=== PATIENT | male | born 1985 | race Caucasian/White ===

== ENCOUNTER 2020-01-04 20:38 | Emergency (ER) | payer MEDICARE, MEDICAID, SELFPAY ==
[2020-01-04 20:49] VITALS: BP 141/93; PULSE 101; RESP 18; TEMP 36.8; O2SAT 98; BMI 32.5
--- NOTE | 2020-01-04 21:00 | ED_ITS ---
HPI - Psych General Chief Complaint: Psychiatric Symptoms Stated Complaint: section 12 Time Seen by Provider: 01/04/20 21:00 Source: patient Mode of arrival: EMS Limitations: no limitations History of Present Illness HPI Narrative: This is a 34-year-old male who is brought in by EMS /police after he was found to have written on his Facebook page at that he wanted to hit governor Gus where it hurts and then the police showed up at his house and sectioned him. patient denies that he wants to kill the Governor or himself and states that he does have a learning disability that results in him not completing his sentences when written to reflect the actual thoughts in his head and states that he meant to state that he wants to hit the governor where hurts in the pockets . He states that he would be willing to offer a pelvic apology in any form that is requested of him. Related Data Allergies Allergy/AdvReac Type Severity Reaction Status Date / Time aripiprazole [From ABILIFY] Allergy Unknown suicidal Verified 01/04/20 21:00 thoughts Review of Systems Review of Systems: Pertinent positives and negatives as stated in HPI and 10 point review of systems is otherwise negative. [facility] Past Medical History Source: nursing notes reviewed Social History Social History Advance Directives: No Advance Directives Information Provided: Yes Physical Exam Vital Signs: Vital Signs: Vital Signs Temp Pulse Resp BP Pulse Ox 01/05/20 02:49 97.8 F 75 17 101/56 L 95 01/04/20 22:18 97.7 F 96 20 114/81 96 01/04/20 20:49 98.2 F 101 H 18 141/93 H 98 Body Mass Index 32.5 VITAL SIGNS: Reviewed. GENERAL: Well developed, well nourished, in no acute distress. HEAD: Normocephalic/atraumatic, EYES: PERRLA, EOMI intact without pain, no nystagmus/pallor/icterus noted EARS: Ext canals without abnormality, TMs non-bulging and non-erythematous NOSE: Nares patent bilateral OROPHARYNX: no oral lesions noted, posterior pharynx clear and non-erythematous without noted tonsillar enlargement/erythema/exudates NECK: Supple, no adenopathy LUNGS: Normal breath sounds. No adventitious sounds or accessory muscle use. SpO2<98> CARDIOVASCULAR: Regular rate and rhythm without noted murmurs, no JVD or lower extremity edema. ABDOMEN: Soft, non-tender, non-distended with bowel sounds. No rigidity. No guarding. No palpable masses or hernias noted MUSCULOSKELETAL: No tenderness, deformities, or effusions noted on gross inspection. EXTREMITIES: No cyanosis, clubbing or edema. SKIN: Inspection of the skin reveals no rashes, ulcerations, jaundice, pallor, or petechiae. NEUROLOGIC: Alert and oriented x 4. Strength and sensation to light touch were grossly intact x 4. Course Course Course Narrative: This is a 34-year-old male with history and clinical presen tation consistent with impulse/mood dysregulation but doubt serious homicidal intent. Patient is otherwise medically cleared for evaluation by the crisis team. MDM - Psych Restraints Face to Face Assessment: Face to Face Assessment: Current Situation: After assessment of the patient, a review of the pertinent medical record and a discussion with nursing staff, I feel the patient requires a restrain intervention. Reaction To: [] Medical Condition: [] Behavioral State: [] Continued Need: [] Lab Data Result diagrams: 01/04/20 21:52 01/04/20 21:52 Labs: Lab Results 01/04/20 01/04/20 01/04/20 Range/Units 21:22 21:52 21:52 WBC 12.6 H (4.8-10.8) X10*3/uL RBC 4.75 (4.60-5.80) X10*6/uL Hgb 14.1 (14.0-18.0) g/dl Hct 41.4 L (42-52) % MCV 87.2 (80-98) fL MCH 29.7 (27.0-33.0) pg MCHC 34.1 (31.0-36.0) g/dl RDW 11.7 (11.0-16.0) % Plt Count 245 (160-400) X10*3/uL MPV 8.8 L (9.4-12.4) fL Immature Gran % (Auto) 0.5 H (0.0-0.4) % Neut % (Auto) 65.1 (45-73) % Lymph % (Auto) 19.7 L (20-40) % [place] % (Auto) 8.8 (2-11) % Eos % (Auto) 5.3 H (0-4) % Baso % (Auto) 0.6 (0-2) % Lymph # (Auto) 2.5 (1.2-4.9) X10*3/uL [place] # (Auto) 1.1 (0.1-1.2) X10*3/uL Eos # (Auto) 0.7 H (0.0-0.4) X10*3/uL Baso # (Auto) 0.1 (0.0-0.2) X10*3/uL Abs Immat Gran (auto) 0.06 H (0.00-0.03) X10*3/uL Absolute Neuts (auto) 8.2 (2.0-8.3) X10*3/uL Absolute Nucleated RBC 0.000 (0.0-0.012) X10*3/uL Nucleated RBC % (auto) 0.0 (0.0-0.2) /100WBC Sodium 141 (135-145) mmol/L Potassium 3.7 (3.3-5.1) mmol/l Chloride 106 (96-108) mmol/L Carbon Dioxide 24 (22-29) mmol/L Anion Gap 15 (12-20) BUN 15 (9-16) mg/dL Creatinine 1.15 (0.5-1.4) mg/dL Estim Creat Clear Calc 103.2 Estimated GFR > 60 Random Glucose 93 (60-115) mg/dL Calcium 9.0 (8.4-10.2) mg/dL Total Bilirubin 0.4 (0.0-1.0) mg/dL AST 29 (5-37) U/L ALT 29 (0-40) U/L Alkaline Phosphatase 76 (39-117) U/L Total Protein 6.8 (6.5-8.0) g/dL Albumin 4.5 (3.5-5.0) g/dL Urine Opiates Screen Not Detected (Not Detect) Ur Barbiturates Screen Not Detected (Not Detect) Ur Phencyclidine Scrn Not Detected (Not Detect) Ur Amphetamines Screen Not Detected (Not Detect) U Benzodiazepines Scrn Not Detected (Not Detect) Urine Cocaine Screen Not Detected (Not Detect) U Marijuana (THC) Screen POSITIVE H (Not Detect) Ethyl Alcohol mg/dL 01/04/20 Range/Units 21:52 WBC (4.8-10.8) X10*3/uL RBC (4.60-5.80) X10*6/uL Hgb (14.0-18.0) g/dl Hct (42-52) % MCV (80-98) fL MCH (27.0-33.0) pg MCHC (31.0-36.0) g/dl RDW (11.0-16.0) % Plt Count (160-400) X10*3/uL MPV (9.4-12.4) fL Immature Gran % (Auto) (0.0-0.4) % Neut % (Auto) (45-73) % Lymph % (Auto) (20-40) % Barnwell % (Auto) (2-11) % Eos % (Auto) (0-4) % Baso % (Auto) (0-2) % Lymph # (Auto) (1.2-4.9) X10*3/uL [place] # (Auto) (0.1-1.2) X10*3/uL Eos # (Auto) (0.0-0.4) X10*3/uL Baso # (Auto) (0.0-0.2) X10*3/uL Abs Immat Gran (auto) (0.00-0.03) X10*3/uL Absolute Neuts (auto) (2.0-8.3) X10*3/uL Absolute Nucleated RBC (0.0-0.012) X10*3/uL Nucleated RBC % (auto) (0.0-0.2) /100WBC Sodium (135-145) mmol/L Potassium (3.3-5.1) mmol/l Chloride (96-108) mmol/L Carbon Dioxide (22-29) mmol/L Anion Gap (12-20) BUN (9-16) mg/dL Creatinine (0.5-1.4) mg/dL Estim Creat Clear Calc Estimated GFR Random Glucose (60-115) mg/dL Calcium (8.4-10.2) mg/dL Total Bilirubin (0.0-1.0) mg/dL AST (5-37) U/L ALT (0-40) U/L Alkaline Phosphatase (39-117) U/L Total Protein (6.5-8.0) g/dL Albumin (3.5-5.0) g/dL Urine Opiates Screen (Not Detect) Ur Barbiturates Screen (Not Detect) Ur Phencyclidine Scrn (Not Detect) Ur Amphetamines Screen (Not Detect) U Benzodiazepines Scrn (Not Detect) Urine Cocaine Screen (Not Detect) U Marijuana (THC) Screen (Not Detect) Ethyl Alcohol < 10 mg/dL
[2020-01-04 22:00] LABS: MANUAL DIFF FLAG NO
[2020-01-04 22:03] LABS: Basophils Absolute Auto 0.1 X10*3/uL (0.0-0.2); Basophils Percent Auto 0.6 % (0-2); Eosinophils Absolute Auto 0.7 X10*3/uL (0.0-0.4); Eosinophils Percent Auto 5.3 % (0-4); Hematocrit 41.4 % (42-52); Hemoglobin 14.1 g/dl (14.0-18.0); Imm Gran Abs Auto 0.06 X10*3/uL (0.00-0.03); Imm Gran Pct Auto 0.5 % (0.0-0.4); Lymphocytes Absolute Auto 2.5 X10*3/uL (1.2-4.9); Lymphocytes Percent Auto 19.7 % (20-40); Mean Corpuscular HGB Conc 34.1 g/dl (31.0-36.0); Mean Corpuscular Hemoglobin 29.7 pg (27.0-33.0); Mean Corpuscular Volume 87.2 fL (80-98); Mean Platelet Volume 8.8 fL (9.4-12.4); Monocytes Absolute Auto 1.1 X10*3/uL (0.1-1.2); Monocytes Percent Auto 8.8 % (2-11); Neutrophils Absolute Auto 8.2 X10*3/uL (2.0-8.3); Neutrophils Percent Auto 65.1 % (45-73); Platelet Count 245 X10*3/uL (160-400); Red Blood Count 4.75 X10*6/uL (4.60-5.80); Red Cell Distribution Width 11.7 % (11.0-16.0); White Blood Count 12.6 X10*3/uL (4.8-10.8)
[2020-01-04 22:12] LABS: Amphetamine Screen Urine Not Detected (Not Detect); Barbiturates, Urine Not Detected (Not Detect); Benzodiazepines Screen Urine Not Detected (Not Detect); Cannabinoid Screen Urine POSITIVE (Not Detect); Cocaine Screen Urine Not Detected (Not Detect); Opiate Screen Urine Not Detected (Not Detect); Phencyclidine Screen Urine Not Detected (Not Detect)
[2020-01-04 22:18] VITALS: BP 114/81; PULSE 96; RESP 20; TEMP 36.5; O2SAT 96
[2020-01-04 22:24] LABS: Ethanol < 10 mg/dL
[2020-01-04 22:26] LABS: Alanine Aminotransferase 29 U/L (0-40); Albumin Level 4.5 g/dL (3.5-5.0); Alkaline Phosphatase 76 U/L (39-117); Anion Gap 15 (12-20); Aspartate Amino Transferase 29 U/L (5-37); Bilirubin Total 0.4 mg/dL (0.0-1.0); Blood Urea Nitrogen 15 mg/dL (9-16); Carbon Dioxide 24 mmol/L (22-29); Chloride 106 mmol/L (96-108); Creatinine Clr Calc Pharmacy 103.2; Estimated Glomerular Filt Rate > 60; Glucose Random 93 mg/dL (60-115); Potassium 3.7 mmol/l (3.3-5.1); Sodium 141 mmol/L (135-145); Total Protein 6.8 g/dL (6.5-8.0)
[2020-01-04] MEDS: hydrOXYzine HCL 50 MG TABLET PO (22:40)
[2020-01-05 02:49] VITALS: BP 101/56; PULSE 75; RESP 17; TEMP 36.6; O2SAT 95
--- NOTE | 2020-01-05 03:17 | PC.NURSE ---
[facility] completed the assessment, couldn't get hold of patient's mother, disposition pending, revaluated in the morning, possible discharge home. Patient aware. Currently in bed sleeping, no distress observed/reported at this time. Will continue to monitor.
--- NOTE | 2020-01-05 07:52 | PC.NURSE ---
pleasant and polite, asked about what plan was, states that his mother is now available and that he spoke w her, awaiting [facility] for continued erval as dean was uunable to speak w his mother last night
[2020-01-05 09:02] VITALS: BP 119/52; PULSE 93; RESP 18; TEMP 36.8; O2SAT 95
[2020-01-05] MEDS: Cariprazine HCl 1.5 MG CAPSULE PO (10:14)
--- NOTE | 2020-01-05 13:41 | PC.NURSE ---
[facility] to discharge pt
== END 2020-01-05 13:49 | disposition home or self-care (01) ==
PROVIDERS: Physician Assistant; Emergency Provider Student in an Organized Health Care Education/Training Program; PCP Family Medicine
DX: F29 Unspecified psychosis not due to a substance or known physiological condition (principal)
CPT/HCPCS: 36415; 80053; 80307; 80320; 85025; 99284

== ENCOUNTER 2020-07-19 18:38 | Emergency (ER) | payer OTHER, MEDICARE, MEDICAID, SELFPAY ==
--- NOTE | ~2020-07-19 | XR_ITS ---
EXAMINATION: XR KNEE, LEFT CLINICAL INFORMATION: Knee pain. Patellar dislocation. COMPARISON: None TECHNIQUE: Four views of the left knee. FINDINGS: The patella is dislocated superior to the knee joint. No displaced fracture. There is soft tissue swelling over the anterior knee. Changes likely due to patellar tendon disruption. The femur, tibia and fibula are normal. XR/XR knee LT 4V IMPRESSION: Superior dislocation of patella. Suspect patellar tendon disruption. Follow-up with MRI would be helpful for further evaluation.
--- NOTE | 2020-07-19 19:11 | ED.LOWEXIN ---
HPI - Extremity Injury (Lower) General Chief Complaint: Extremity Injury, Lower Stated Complaint: KNEE PAIN Time Seen by Provider: 07/19/20 18:42 Source: patient Mode of arrival: EMS Limitations: no limitations History of Present Illness HPI Narrative: Patient comes emergency room complaining of left knee pain. Patient states that earlier this afternoon, patient was ?chasing people of his backyard?, patient states that while he was running he had sudden onset sharp knee pain, then fell to the ground. Patient denies hitting his head, no loss of consciousness, not on blood thinners. Patient states that he was able to walk but had too much pain on the right knee, called EMS and was brought to the emergency room. Related Data Home Medications Medication Instructions Recorded Confirmed cariprazine 1.5 mg PO DAILY 01/05/20 01/05/20 hydroxyzine HCl 50 mg PO DAILY PRN MDD 100mg 01/05/20 01/05/20 varenicline 1 mg PO BID 01/05/20 01/05/20 Previous Rx's Medication Instructions Recorded ibuprofen 600 mg PO TID PRN #14 tab 07/20/20 tramadol 50 mg PO Q8H PRN #10 tab 07/20/20 Allergies Allergy/AdvReac Type Severity Reaction Status Date / Time aripiprazole [From ABILIY] Allergy Unknown suicidal Verified 01/04/20 21:00 thoughts Review of Systems Review of Systems: Constitutional : No Weight loss, No Fever, No Chills, No Night Sweats, No Fatigue, No Malaise ENT/Mouth : No Hearing loss, No Ear Pain, No Nasal Congestion, No Sinus Pain, No Hoarseness, No sore throat, No Rhinorrhea, No Swallowing Difficulty Eyes: No Eye Pain, No Swelling, No Redness, No Foreign Body, No Discharge, No Vision Changes Cardiovascular : No Chest Pain, No SOB, No Dyspnea on Exertion, No Orthopnea, No Edema, No Palpitations Respiratory : No Cough, No Sputum, No Wheezing, No Smoke Exposure, No Dyspnea Gastrointestinal : No Nausea, No Vomiting, No Diarrhea, No Constipation, No abdominal Pain, No Hematochezia, No Melena Genitourinary : no irregular bleeding, No Dysuria, No Urinary Frequency, No Hematuria, No Urinary Incontinence, No Urgency, No Flank Pain, No Urinary Flow Changes, No Hesitancy Musculoskeletal : Complaining of left knee pain, No Myalgias, No Joint Swelling Skin : Multiple superficial skin abrasions Neuro : No Weakness, No Numbness, No Paresthesias, No Loss of Consciousness, No Dizziness, No Headache Psych : No Anxiety/Panic, No Depression, No SI/HI/AH/VH, No Social Issues, Heme/Lymph: No Bruising, No Bleeding,No Lymphadenopathy Endocrine : No Polyuria, No Polydipsia, No Temperature Intolerance [facility] Past Medical History Medical History (Updated 07/19/20 @ 22:31 by Kandice Bloom MD) Depression Social History Social History Smoking Status: Current every day smoker Use of substances other than those prescribed or required for medical reasons: Yes Substance Use Type: Marijuana Substance Use Frequency: Occasionally Advance Directives: No Advance Directives Information Provided: Yes Physical Exam Vital Signs: Vital Signs: Last Vital Signs Temp 98.4 F 07/19/20 22:00 Pulse 65 07/19/20 22:00 Resp 22 H 07/19/20 22:00 BP 171/78 H 07/19/20 22:00 Pulse Ox 95 07/19/20 22:00 Body Mass Index 38.0 Appearance: Alert. Oriented X3. No acute distress. Eyes: Pupils equal, round and reactive to light. ENT: Pharynx normal. Neck: Normal inspection. Neck supple. No lymph nodes noted. No crepitus CVS: Normal heart rate and rhythm. Pulses normal. Normal S1 and S2 Respiratory: No respiratory distress. Breath sounds normal. No Wheezing. No rales Abdomen: Soft and nontender. No rigidity. No distention. good BS x4 Skin: Skin warm and dry. Multiple abrasions to bilateral lower extremities Extremities: No lower extremity edema. Chronic deformation of the left ankle, no acute pain. Pain to palpation over the left knee Neuro: Oriented X 3. No motor deficit. No sensory deficit. Moving all extermities. No slurred speech. Course Course Course Narrative: I discussed the x-ray findings with the patient, patient has a superior patellar dislocation. Patient agrees and consents to sedation with IM ketamine. Patient received 2 milligrams/kilogram of IM ketamine. Patient tolerated well the medication. Patellar reduction was attempted, however it became evident that the patellar tendon is ruptured. I discussed the patient with DEMETRIO Johnston from orthopedics who also spoke to Dr. Nunez. Patient will be discharged home with pain medication, knee brace and crutches, he needs to follow up tomorrow with orthopedics as he will need surgery Patient is now awake, alert and oriented x3. I discussed with the patient that he has a patellar tendon rupture, the patella remains dislocated, he will need surgery. MDM - Extremity Injury (Lower) Imaging Data Knee x-ray: Radiologist's impression: The patella is dislocated superior to the knee joint. No displaced fracture. There is soft tissue swelling over the anterior knee. Changes likely due to patellar tendon disruption. The femur, tibia and fibula are normal. XR/XR knee LT 4V IMPRESSION: Superior dislocation of patella. Suspect patellar tendon disruption. Follow-up with MRI would be helpful for further evaluation. Discharge Plan Discharge Clinical Impression: Patellar tendon rupture Qualifiers: Encounter type: initial encounter Laterality: left Qualified Code(s): S86.812A - Strain of other muscle(s) and tendon(s) at lower leg level, left leg, initial encounter Closed dislocation of patella Qualifiers: Encounter type: initial encounter Laterality: left Qualified Code(s): S83.005A - Unspecified dislocation of left patella, initial encounter Patient Disposition: Home, Self-Care Instructions: Knee Immobilizer (ED), Tendon Rupture (ED) Additional Instructions: Please call the orthopedics office tomorrow, you have ruptured tendons in your knee, you will need surgery. Please follow-up with your primary care physician tomorrow. If you have any worsening or new symptoms, please return to the emergency room or call 911 Prescriptions: New tramadol 50 mg tablet 50 mg PO Q8H PRN (Reason: pain) Qty: 10 RF: 0 ibuprofen 600 mg tablet 600 mg PO TID PRN (Reason: pain) Qty: 14 RF: 0 No Action varenicline 1 mg PO BID RF: 0 cariprazine 1.5 mg PO DAILY RF: 0 hydroxyzine HCl 50 mg PO DAILY MDD 100mg PRN (Reason: Anxiety) RF: 0 Referrals: Hardik Nunez MD [Physician] - 07/20/20 9:00 am (Patellar tendon rupture with patellar dislocation)
[2020-07-19 19:17] VITALS: BP 139/90; BP 158/79; PULSE 85; PULSE 98; RESP 15; TEMP 36.4; O2SAT 96; O2SAT 97; BMI 38.0
[2020-07-19 20:00] VITALS: BP 152/76; PULSE 68; RESP 16; TEMP 36.6; O2SAT 99
[2020-07-19] MEDS: Ketamine HCl 500 MG/5 ML VIAL 453.592 MG IM (21:47)
[2020-07-19 22:00] VITALS: BP 171/78; PULSE 65; RESP 22; TEMP 36.9; O2SAT 95
--- NOTE | 2020-07-19 22:00 | PC.NURSE ---
Per MD order patient to receive half the ordered dose of ketamine. Attempt to reduce dislocated knee unsucessful. MD to consult with orthopedics. Patient tolerated the procedure well
[2020-07-19] MEDS: ondansetron HCL 4 MG/2 ML VIAL IVPUSH (22:37)
--- NOTE | 2020-07-19 22:57 | PC.NURSE ---
pt vomiting, ordered zofran.
== END 2020-07-20 00:37 | disposition home or self-care (01) ==
PROVIDERS: Emergency Provider Emergency Medicine; PCP Family Medicine
DX: S86.812A Strain of other muscle(s) and tendon(s) at lower leg level, left leg, initial encounter (principal); S83.005A Unspecified dislocation of left patella, initial encounter; M25.562 Pain in left knee; F17.200 Nicotine dependence, unspecified, uncomplicated; F12.90 Cannabis use, unspecified, uncomplicated; Y93.02 Activity, running; Y92.007 Garden or yard of unspecified non-institutional (private) residence as the place of occurrence of the external cause; Y99.9 Unspecified external cause status; Z79.899 Other long term (current) drug therapy; Z71.6 Tobacco abuse counseling
CPT/HCPCS: 73564; 96372; 96374; 99284; J2405

== ENCOUNTER 2020-12-19 12:54 | Emergency (ER) | payer OTHER, SELFPAY ==
--- NOTE | 2020-12-19 13:07 | ED_ITS ---
HPI - Psych General Chief Complaint: Psychiatric Symptoms <DEMETRIO Jay - Last Filed: 12/19/20 17:53> Stated Complaint: MANIC EPISODE <DEMETRIO Jay - Last Filed: 12/19/20 17:53> Time Seen by Provider: 12/19/20 13:06 <DEMETRIO Jay - Last Filed: 12/19/20 17:53> Source: patient and EMS <DEMETRIO Jay Last Filed: 12/19/20 17:53> Mode of arrival: EMS <DEMETRIO aJy - Last Filed: 12/19/20 17:53> Limitations: no limitations <DEMETRIO Jay - Last Filed: 12/19/20 17:53> History of Present Illness HPI Narrative: 35 yo male with history of bipolar 1 disorder, depression with multiple hospitalizations for ron and agiatated psychosis presents to the ER via EMS from home as a section 12 inpatient bed search from [facility] in the community after he was noted to be acutely manic with disorganized thoughts & paranoia. When attempted to interview the patient he reports he did not want to talk or answer any questions. 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 Again he would not answer any questions, would not say if he is suicidal or homicidal at this time. <DEMETRIO Jay - Last Filed: 12/19/20 17:53> MD complaint: anxiety and other (ron, psychosis ) <DEMETRIO Jay - Last Filed: 12/19/20 17:53> Onset (ago): unknown <DEMETRIO Jay - Last Filed: 12/19/20 17:53> Duration: constant <DEMETRIO Jay - Last Filed: 12/19/20 17:53> History of same: Yes <DEMETRIO Jay - Last Filed: 12/19/20 17:53> Relieving factors: none <DEMETRIO Jay Last Filed: 12/19/20 17:53> Exacerbating factors: none <DEMETRIO Jay - Last Filed: 12/19/20 17:53> Associated psychiatric symptoms: racing thoughts and delusions <DEMETRIO Jay - Last Filed: 12/19/20 17:53> Treatments prior to arrival: placed on mental health hold <DEMETRIO Jay - Last Filed: 12/19/20 17:53> Related Data Home Medications: Home Medications Medication Instructions Recorded Confirmed hydroxyzine pamoate 50 mg capsule 50 mg PO BID PRN 12/19/20 12/19/20 nicotine (polacrilex) 2 mg buccal 2 mg BUCCAL Q4H PRN 12/19/20 12/19/20 lozenge <DEMETRIO Jay - Last Filed: 12/19/20 17:53> Allergies/Adverse Reactions: Allergies Allergy/AdvReac Type Severity Reaction Status Date / Time aripiprazole [From ABILIFY] Allergy Unknown suicidal Verified 01/04/20 21:00 thoughts <DEMETRIO Jay - Last Filed: 12/19/20 17:53> Review of Systems Review of Systems: Refusing to answer any questions <DEMETRIO Jay - Last Filed: 12/19/20 17:53> ON LICENSE OF [facility] Past Medical History Medical History: Medical History (Updated 12/19/20 @ 16:36 by DEMETRIO Jay) Depression <DEMETRIO Jay - Last Filed: 12/19/20 17:53> Social History Social History: Social History Substance Use Type: Marijuana Advance Directives: No Advance Directives Information Provided: Yes <DEMETRIO Jay - Last Filed: 12/19/20 17:53> Physical Exam Vital Signs: Vital Signs: Last Vital Signs Temp 98.2 F 12/19/20 14:29 Pulse 94 12/19/20 14:29 Resp 18 12/19/20 14:29 BP 143/81 H 12/19/20 14:29 Pulse Ox 99 12/19/20 14:29 Body Mass Index 29.2 <DEMETRIO Jay - Last Filed: 12/19/20 17:53> Vital Signs: Last Vital Signs Temp 98.2 F 12/19/20 14:29 Pulse 94 12/19/20 14:29 Resp 18 12/19/20 14:29 BP 143/81 H 12/19/20 14:29 Pulse Ox 99 12/19/20 14:29 Body Mass Index 29.2 <Ariella Dominguez NP - Last Filed: 12/19/20 19:45> Appearance: Alert. Oriented X3. No acute distress. HEENT: normal external inspection Neck: Normal inspection. CVS: Normal heart rate and rhythm. Pulses normal. Respiratory: No respiratory distress. Breath sounds normal. Skin: Skin warm and dry. Normal skin color. Normal skin turgor. No rashes. Extremities: No lower extremity edema. Atraumatic x4. Neuro/psych: awake, alert, hyperverbal, nonsensical speech, agitated jumping from one topic to another. Not answering questions or allowing a complete examination. Unable to assess cranial nerves. <DEMETRIO Jay - Last Filed: 12/19/20 17:53> Course Course Course Narrative: 35 y/o male with history of bipolar disorder requiring hospitalizations who is presenting with an acute manic episode. He is not making sense and is hyperverbal on arrival. He is not willing to answer questions or allow physical examination at this time. Will check basic lab workup if he will allow and plan for inpatient psychiatric care. He is an inpatient bed search from the community. <DEMETRIO Jay - Last Filed: 12/19/20 17:53> Reevaluation(s) Reevaluation #1: Refuse blood work. Urine toxicology is negative. He is asking for STD testing per nursing, urine CT/NG has been ordered. Admission to hopefully today if they have a bed available. <DEMETRIO Jay - Last Filed: 12/19/20 17:53> Time: 19:45 <Ariella Dominguez NP - Last Filed: 12/19/20 19:45> Reevaluation #2: Reviewed labs, urine. Patient is medically cleared. <Ariella Dominguez NP - Last Filed: 12/19/20 19:45> MDM - Psych Lab Data Result diagrams: : 12/19/20 18:53 12/19/20 18:53 <DEMETRIO Jay - Last Filed: 12/19/20 17:53> Labs: Lab Results 1012/19/20 12/19/20 Range/Units 13:52 13:52 14:41 WBC (4.8-10.8) X10*3/uL RBC (4.60-5.80) X10*6/uL Hgb (14.0-18.0) g/dl Hct (42-52) % MCV (80-98) fL MCH (27.0-33.0) pg MCHC (31.0-36.0) g/dl RDW (11.0-16.0) % Plt Count (160-400) X10*3/uL MPV (9.4-12.4) fL Immature Gran % (Auto) (0.0-0.4) % Neut % (Auto) (45-73) % Lymph % (Auto) (20-40) % [place] % (Auto) (2-11) % Eos % (Auto) (0-4) % Baso % (Auto) (0-2) % Lymph # (Auto) (1.2-4.9) X10*3/uL [place] # (Auto) (0.1-1.2) X10*3/uL Eos # (Auto) (0.0-0.4) X10*3/uL Baso # (Auto) (0.0-0.2) X10*3/uL Abs Immat Gran (auto) (0.00-0.03) X10*3/uL Absolute Neuts (auto) (2.0-8.3) X10*3/uL Absolute Nucleated RBC (0.0-0.012) X10*3/uL Nucleated RBC % (auto) (0.0-0.2) /100WBC Sodium (135-145) mmol/L Potassium (3.3-5.1) mmol/L Chloride (96-108) mmol/L Carbon Dioxide (22-29) mmol/L Anion Gap (12-20) BUN (9-16) mg/dL Creatinine (0.5-1.4) mg/dL Estim Creat Clear Calc Estimated GFR Random Glucose (60-115) mg/dL Calcium (8.4-10.2) mg/dL Magnesium (1.6-2.6) mg/dL Total Bilirubin (0.0-1.0) mg/dL Direct Bilirubin (0.0-0.5) mg/dL AST (5-37) U/L ALT (0-40) U/L Alkaline Phosphatase (39-117) U/L Total Protein (6.5-8.0) g/dL Albumin (3.5-5.0) g/dL Urine Color YELLOW Urine Appearance CLEAR Urine pH 6.5 (5.0-8.0) Ur Specific [place] <= 1.005 (1.005-1.025) Urine Protein NEG (NEG-TRACE) MG/DL Urine Glucose (UA) NEG (NEG) MG/DL Urine Ketones NEG (NEG) MG/DL Urine Blood NEG (NEG) Urine Nitrite NEG (NEG) Ur Leukocyte Esterase NEG (NEG) Urine Opiates Screen Not Detected (Not Detect) Urine Fentanyl Screen Not Detected (Not Detect) Ur Barbiturates Screen Not Detected (Not Detect) Ur Phencyclidine Scrn Not Detected (Not Detect) Ur Amphetamines Screen Not Detected (Not Detect) U Benzodiazepines Scrn Not Detected (Not Detect) Urine Cocaine Screen Not Detected (Not Detect) U Marijuana (THC) Screen Not Detected (Not Detect) Ethyl Alcohol mg/dL COVID-19 (LINA) Negative (Negative) COVID-19 Clin Com See Note 12/19/20 12/19/20 12/19/20 Range/Units 18:53 18:53 18:53 WBC 9.5 (4.8-10.8) X10*3/uL RBC 4.52 L (4.60-5.80) X10*6/uL Hgb 13.8 L (14.0-18.0) g/dl Hct 38.7 L (42-52) % MCV 85.6 (80-98) fL MCH 30.5 (27.0-33.0) pg MCHC 35.7 (31.0-36.0) g/dl RDW 12.0 (11.0-16.0) % Plt Count 236 (160-400) X10*3/uL MPV 8.8 L (9.4-12.4) fL Immature Gran % (Auto) 0.2 (0.0-0.4) % Neut % (Auto) 64.2 (45-73) % Lymph % (Auto) 25.3 (20-40) % [place] % (Auto) 8.0 (2-11) % Eos % (Auto) 1.9 (0-4) % Baso % (Auto) 0.4 (0-2) % Lymph # (Auto) 2.4 (1.2-4.9) X10*3/uL [place] # (Auto) 0.8 (0.1-1.2) X10*3/uL Eos # (Auto) 0.2 (0.0-0.4) X10*3/uL Baso # (Auto) 0.0 (0.0-0.2) X10*3/uL Abs Immat Gran (auto) 0.02 (0.00-0.03) X10*3/uL Absolute Neuts (auto) 6.1 (2.0-8.3) X10*3/uL Absolute Nucleated RBC 0.000 (0.0-0.012) X10*3/uL Nucleated RBC % (auto) 0.0 (0.0-0.2) /100WBC Sodium 139 (135-145) mmol/L Potassium 3.6 (3.3-5.1) mmol/L Chloride 105 (96-108) mmol/L Carbon Dioxide 22 (22-29) mmol/L Anion Gap 16 (12-20) BUN 12 (9-16) mg/dL Creatinine 0.95 (0.5-1.4) mg/dL Estim Creat Clear Calc 121.5 Estimated GFR > 60 Random Glucose 150 H D (60-115) mg/dL Calcium 9.5 (8.4-10.2) mg/dL Magnesium 2.1 (1.6-2.6) mg/dL Total Bilirubin 0.6 (0.0-1.0) mg/dL Direct Bilirubin 0.3 (0.0-0.5) mg/dL AST 52 H (5-37) U/L ALT 37 (0-40) U/L Alkaline Phosphatase 72 (39-117) U/L Total Protein 7.0 (6.5-8.0) g/dL Albumin 4.9 (3.5-5.0) g/dL Urine Color Urine Appearance Urine pH (5.0-8.0) Ur Specific [place] (1.005-1.025) Urine Protein (NEG-TRACE) MG/DL Urine Glucose (UA) (NEG) MG/DL Urine Ketones (NEG) MG/DL Urine Blood (NEG) Urine Nitrite (NEG) Ur Leukocyte Esterase (NEG) Urine Opiates Screen (Not Detect) Urine Fentanyl Screen (Not Detect) Ur Barbiturates Screen (Not Detect) Ur Phencyclidine Scrn (Not Detect) Ur Amphetamines Screen (Not Detect) U Benzodiazepines Scrn (Not Detect) Urine Cocaine Screen (Not Detect) U Marijuana (THC) Screen (Not Detect) Ethyl Alcohol < 10 mg/dL COVID-19 (LINA) (Negative) COVID-19 Clin Com <DEMETRIO Jay - Last Filed: 12/19/20 17:53> Lab Results 12/19/20 12/19/20 12/19/20 Range/Units 13:52 13:52 14:41 WBC (4.8-10.8) X10*3/uL RBC (4.60-5.80) X10*6/uL Hgb (14.0-18.0) g/dl Hct (42-52) % MCV (80-98) fL MCH (27.0-33.0) pg MCHC (31.0-36.0) g/dl RDW (11.0-16.0) % Plt Count (160-400) X10*3/uL MPV (9.4-12.4) fL Immature Gran % (Auto) (0.0-0.4) % Neut % (Auto) (45-73) % Lymph % (Auto) (20-40) % [place] % (Auto) (2-11) % Eos % (Auto) (0-4) % Baso % (Auto) (0-2) % Lymph # (Auto) (1.2-4.9) X10*3/uL [place] # (Auto) (0.1-1.2) X10*3/uL Eos # (Auto) (0.0-0.4) X10*3/uL Baso # (Auto) (0.0-0.2) X10*3/uL Abs Immat Gran (auto) (0.00-0.03) X10*3/uL Absolute Neuts (auto) (2.0-8.3) X10*3/uL Absolute Nucleated RBC (0.0-0.012) X10*3/uL Nucleated RBC % (auto) (0.0-0.2) /100WBC Sodium (135-145) mmol/L Potassium (3.3-5.1) mmol/L Chloride (96-108) mmol/L Carbon Dioxide (22-29) mmol/L Anion Gap (12-20) BUN (9-16) mg/dL Creatinine (0.5-1.4) mg/dL Estim Creat Clear Calc Estimated GFR Random Glucose (60-115) mg/dL Calcium (8.4-10.2) mg/dL Magnesium (1.6-2.6) mg/dL Total Bilirubin (0.0-1.0) mg/dL Direct Bilirubin (0.0-0.5) mg/dL AST (5-37) U/L ALT (0-40) U/L Alkaline Phosphatase (39-117) U/L Total Protein (6.5-8.0) g/dL Albumin (3.5-5.0) g/dL Urine Color YELLOW Urine Appearance CLEAR Urine pH 6.5 (5.0-8.0) Ur Specific [place] <= 1.005 (1.005-1.025) Urine Protein NEG (NEG-TRACE) MG/DL Urine Glucose (UA) NEG (NEG) MG/DL Urine Ketones NEG (NEG) MG/DL Urine Blood NEG (NEG) Urine Nitrite NEG (NEG) Ur Leukocyte Esterase NEG (NEG) Urine Opiates Screen Not Detected (Not Detect) Urine Fentanyl Screen Not Detected (Not Detect) Ur Barbiturates Screen Not Detected (Not Detect) Ur Phencyclidine Scrn Not Detected (Not Detect) Ur Amphetamines Screen Not Detected (Not Detect) U Benzodiazepines Scrn Not Detected (Not Detect) Urine Cocaine Screen Not Detected (Not Detect) U Marijuana (THC) Screen Not Detected (Not Detect) Ethyl Alcohol mg/dL COVID-19 (LINA) Negative (Negative) COVID-19 Clin Com See Note 12/19/20 12/19/20 12/19/20 Range/Units 18:53 18:53 18:53 WBC 9.5 (4.8-10.8) X10*3/uL RBC 4.52 L (4.60-5.80) X10*6/uL Hgb 13.8 L (14.0-18.0) g/dl Hct 38.7 L (42-52) % MCV 85.6 (80-98) fL MCH 30.5 (27.0-33.0) pg MCHC 35.7 (31.0-36.0) g/dl RDW 12.0 (11.0-16.0) % Plt Count 236 (160-400) X10*3/uL MPV 8.8 L (9.4-12.4) fL Immature Gran % (Auto) 0.2 (0.0-0.4) % Neut % (Auto) 64.2 (45-73) % Lymph % (Auto) 25.3 (20-40) % [place] % (Auto) 8.0 (2-11) % Eos % (Auto) 1.9 (0-4) % Baso % (Auto) 0.4 (0-2) % Lymph # (Auto) 2.4 (1.2-4.9) X10*3/uL [place] # (Auto) 0.8 (0.1-1.2) X10*3/uL Eos # (Auto) 0.2 (0.0-0.4) X10*3/uL Baso # (Auto) 0.0 (0.0-0.2) X10*3/uL Abs Immat Gran (auto) 0.02 (0.00-0.03) X10*3/uL Absolute Neuts (auto) 6.1 (2.0-8.3) X10*3/uL Absolute Nucleated RBC 0.000 (0.0-0.012) X10*3/uL Nucleated RBC % (auto) 0.0 (0.0-0.2) /100WBC Sodium 139 (135-145) mmol/L Potassium 3.6 (3.3-5.1) mmol/L Chloride 105 (96-108) mmol/L Carbon Dioxide 22 (22-29) mmol/L Anion Gap 16 (12-20) BUN 12 (9-16) mg/dL Creatinine 0.95 (0.5-1.4) mg/dL Estim Creat Clear Calc 121.5 Estimated GFR > 60 Random Glucose 150 H D (60-115) mg/dL Calcium 9.5 (8.4-10.2) mg/dL Magnesium 2.1 (1.6-2.6) mg/dL Total Bilirubin 0.6 (0.0-1.0) mg/dL Direct Bilirubin 0.3 (0.0-0.5) mg/dL AST 52 H (5-37) U/L ALT 37 (0-40) U/L Alkaline Phosphatase 72 (39-117) U/L Total Protein 7.0 (6.5-8.0) g/dL Albumin 4.9 (3.5-5.0) g/dL Urine Color Urine Appearance Urine pH (5.0-8.0) Ur Specific [place] (1.005-1.025) Urine Protein (NEG-TRACE) MG/DL Urine Glucose (UA) (NEG) MG/DL Urine Ketones (NEG) MG/DL Urine Blood (NEG) Urine Nitrite (NEG) Ur Leukocyte Esterase (NEG) Urine Opiates Screen (Not Detect) Urine Fentanyl Screen (Not Detect) Ur Barbiturates Screen (Not Detect) Ur Phencyclidine Scrn (Not Detect) Ur Amphetamines Screen (Not Detect) U Benzodiazepines Scrn (Not Detect) Urine Cocaine Screen (Not Detect) U Marijuana (THC) Screen (Not Detect) Ethyl Alcohol < 10 mg/dL COVID-19 (LINA) (Negative) COVID-19 Clin Com <Ariella Dominguez NP - Last Filed: 12/19/20 19:45> Discharge Plan Discharge Clinical Impression: Acute psychosis <DEMETRIO Jay - Last Filed: 12/19/20 17:53> Patient Disposition: Admitted As Inpatient <DEMETRIO Jay - Last Filed: 12/19/20 17:53>
[2020-12-19 14:04] LABS: Appearance Urine CLEAR; Color Urine YELLOW; Glucose Urine UA NEG (NEG); Leukocyte Esterase Urine NEG (NEG); Nitrite Urine NEG (NEG); PH 6.5 (5.0-8.0); Specific Gravity - Urine <= 1.005 (1.005-1.025); Urine Blood NEG (NEG); Urine Ketones NEG (NEG); Urine Protein NEG (NEG-TRACE)
[2020-12-19 14:15] LABS: Amphetamine Screen Urine Not Detected (Not Detect); Barbiturates, Urine Not Detected (Not Detect); Benzodiazepines Screen Urine Not Detected (Not Detect); Cannabinoid Screen Urine Not Detected (Not Detect); Cocaine Screen Urine Not Detected (Not Detect); Fentanyl, urine Not Detected (Not Detect); Opiate Screen Urine Not Detected (Not Detect); Phencyclidine Screen Urine Not Detected (Not Detect)
[2020-12-19 14:29] VITALS: BP 143/81; PULSE 94; RESP 18; TEMP 36.8; O2SAT 99; BMI 29.2
[2020-12-19 15:05] LABS: COVID-19 Test Negative (Negative)
--- NOTE | 2020-12-19 16:09 | PC.NURSE ---
client apparently is calling piolice departments and perhaps other [id number] a/e/b incoming call from inpatient floor. t/w approached client about not using phone to call these places and he seemed mildly upset about this request
[2020-12-19] MEDS: Ibuprofen 600 MG TABLET PO (17:03)
--- NOTE | 2020-12-19 17:11 | PHA.MEDREC ---
Pharmacy Consult ? Medication Reconciliation Pharmacy has completed the medication reconciliation. Patient fills at the [facility]. Theresa Tong, SonD [phone]
[2020-12-19] MEDS: Nicotine Polacrilex Lozenge 2 MG LOZENGE BUCCAL (18:29)
[2020-12-19 18:57] LABS: MANUAL DIFF FLAG NO
[2020-12-19 18:58] LABS: Basophils Percent Auto 0.4 % (0-2); Eosinophils Absolute Auto 0.2 X10*3/uL (0.0-0.4); Eosinophils Percent Auto 1.9 % (0-4); Hematocrit 38.7 % (42-52); Hemoglobin 13.8 g/dl (14.0-18.0); Imm Gran Abs Auto 0.02 X10*3/uL (0.00-0.03); Imm Gran Pct Auto 0.2 % (0.0-0.4); Lymphocytes Absolute Auto 2.4 X10*3/uL (1.2-4.9); Lymphocytes Percent Auto 25.3 % (20-40); Mean Corpuscular HGB Conc 35.7 g/dl (31.0-36.0); Mean Corpuscular Hemoglobin 30.5 pg (27.0-33.0); Mean Corpuscular Volume 85.6 fL (80-98); Mean Platelet Volume 8.8 fL (9.4-12.4); Monocytes Absolute Auto 0.8 X10*3/uL (0.1-1.2); Neutrophils Absolute Auto 6.1 X10*3/uL (2.0-8.3); Neutrophils Percent Auto 64.2 % (45-73); Platelet Count 236 X10*3/uL (160-400); Red Blood Count 4.52 X10*6/uL (4.60-5.80); White Blood Count 9.5 X10*3/uL (4.8-10.8)
[2020-12-19 19:11] LABS: Ethanol < 10 mg/dL
[2020-12-19 19:15] LABS: Alanine Aminotransferase 37 U/L (0-40); Albumin Level 4.9 g/dL (3.5-5.0); Alkaline Phosphatase 72 U/L (39-117); Anion Gap 16 (12-20); Aspartate Amino Transferase 52 U/L (5-37); Bilirubin Direct 0.3 mg/dL (0.0-0.5); Bilirubin Total 0.6 mg/dL (0.0-1.0); Blood Urea Nitrogen 12 mg/dL (9-16); Calcium 9.5 mg/dL (8.4-10.2); Carbon Dioxide 22 mmol/L (22-29); Chloride 105 mmol/L (96-108); Creatinine Clr Calc Pharmacy 121.5; Estimated Glomerular Filt Rate > 60; Glucose Random 150 mg/dL (60-115); Magnesium 2.1 mg/dL (1.6-2.6); Potassium 3.6 mmol/L (3.3-5.1); Sodium 139 mmol/L (135-145)
--- NOTE | 2020-12-19 20:37 | MHC.CARE ---
Pt was initially accepted to [facility]- upon clinical review Pt would best benefit from a IPLOC at [facility]. CARE Team provided [facility] clinical information. Pt is pending medical review by [facility]. Provider aware.
== END 2020-12-19 23:18 ==
PROVIDERS: Physician Assistant; Emergency Provider Emergency Medicine
DX: F29 Unspecified psychosis not due to a substance or known physiological condition (principal); F31.9 Bipolar disorder, unspecified; Z79.899 Other long term (current) drug therapy; Z20.822 Contact with and (suspected) exposure to COVID-19
CPT/HCPCS: 36415; 80048; 80076; 80307; 81003; 82077; 83735; 85025; 87635; 99285

== ENCOUNTER 2022-07-17 10:26 | Emergency (ER) | payer MEDICARE, MEDICAID, SELFPAY ==
--- NOTE | 2022-07-17 | ECG_ITS ---
Test Reason : DIZZINESS Blood Pressure : / mmHG Vent. Rate : 065 BPM Atrial Rate : 065 BPM P-R Int : 138 ms QRS Dur : 090 ms QT Int : 422 ms P-R-T Axes : 005 029 -01 degrees QTc Int : 438 ms Normal sinus rhythm Normal ECG When compared with ECG of 23-OCT-2016 12:44, No significant change was found Referred By: Generic ED Physician Electronically Signed By:Yasir Vicente
[2022-07-17 10:36] VITALS: BP 160/94; PULSE 70; O2SAT 97
[2022-07-17 10:46] VITALS: BP 145/88; PULSE 72; RESP 18; TEMP 36.3; O2SAT 97; BMI 36.0
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
[2022-07-17 11:53] LABS: MANUAL DIFF FLAG NO
[2022-07-17 11:57] VITALS: BP 137/73; PULSE 68; RESP 16; TEMP 36.4; O2SAT 96
[2022-07-17 12:00] LABS: Basophils Percent Auto 0.2 % (0-2); Eosinophils Percent Auto 0.2 % (0-4); Hematocrit 40.3 % (42.0-52.0); Hemoglobin 13.7 g/dl (14.0-18.0); Imm Gran Abs Auto 0.05 X10*3/uL (0.00-0.03); Imm Gran Pct Auto 0.5 % (0.0-0.4); Lymphocytes Absolute Auto 1.6 X10*3/uL (1.2-4.9); Mean Corpuscular Hemoglobin 29.3 pg (27.0-33.0); Mean Corpuscular Volume 86.3 fL (80.0-98.0); Mean Platelet Volume 8.6 fL (9.4-12.4); Monocytes Absolute Auto 0.6 X10*3/uL (0.1-1.2); Monocytes Percent Auto 6.1 % (2-11); Neutrophils Absolute Auto 7.1 x10*3/uL (2.0-8.3); Platelet Count 247 X10*3/uL (160-400); Red Blood Count 4.67 X10*6/uL (4.60-5.80); Red Cell Distribution Width 12.5 % (11.0-16.0); White Blood Count 9.3 X10*3/uL (4.8-10.8)
[2022-07-17 12:28] LABS: Acetaminophen LAB < 17 mcg/mL (<30); Alanine Aminotransferase 79 U/L (0-40); Albumin Level 4.8 g/dL (3.5-5.0); Alkaline Phosphatase 71 U/L (39-117); Anion Gap 14 (12-20); Aspartate Amino Transferase 106 U/L (5-37); Bilirubin Direct 0.3 mg/dL (0.0-0.5); Bilirubin Total 0.8 mg/dL (0.0-1.0); Blood Urea Nitrogen 11 mg/dL (9-16); Calcium 9.4 mg/dL (8.4-10.2); Carbon Dioxide 23 mmol/L (22-29); Chloride 107 mmol/L (96-108); Creatinine Clr Calc Pharmacy 151.2; Estimated Glomerular Filt Rate > 60; Ethanol < 10 mg/dL; Glucose Random 113 mg/dL (60-115); Magnesium 2.2 mg/dL (1.6-2.6); Potassium 3.7 mmol/L (3.3-5.1); Salicylate < 5.0 mg/dL (15-30); Sodium 140 mmol/L (135-145); Total Protein 6.8 g/dL (6.5-8.0)
[2022-07-17 12:29] VITALS: BP 137/73; PULSE 70; RESP 16; TEMP 36.3; O2SAT 95
--- NOTE | 2022-07-17 12:45 | PC.NURSE ---
pt a&o x4, pleasant, calm and cooperative. pt reporting anxiety that started last night. pt reports having anxious feelings in the past but never like this. sts he feels as if he's passing out right now , however pt is laying in bed and not having a syncopal episode. pt getting up on own and walking around ED, talking on the phone. in no apparent distress udglas. vss. wctm
[2022-07-17 13:50] LABS: Amphetamine Screen Urine Not Detected (Not Detect); Barbiturates, Urine Not Detected (Not Detect); Benzodiazepines Screen Urine Not Detected (Not Detect); Cannabinoid Screen Urine POSITIVE (Not Detect); Cocaine Screen Urine Not Detected (Not Detect); Fentanyl, urine Not Detected (Not Detect); Opiate Screen Urine Not Detected (Not Detect); Phencyclidine Screen Urine Not Detected (Not Detect)
[2022-07-17] MEDS: hydrOXYzine HCL 25 MG TABLET PO (14:03)
[2022-07-17] MEDS: Ibuprofen 600 MG TABLET PO (14:03)
[2022-07-17 14:19] VITALS: BP 139/80; PULSE 57; RESP 16; TEMP 36.4; O2SAT 95
--- NOTE | 2022-07-17 14:42 | PC.NURSE ---
pt sts he is feeling better and wants to leave to go to [facility]. DEMETRIO Aleman aware. awaiting care team consult. wctm
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
--- NOTE | 2022-07-17 17:01 | PC.NURSE ---
Pt pacing. Reports of saying something today that probably are not true. notified.
--- NOTE | 2022-07-17 17:28 | PHA.MEDREC ---
Addendum entered by Kanwal Robles [facility] 07/17/22 18:00: PHARMACIST REVIEWED Original Note: Pharmacy Consult ? Medication Reconciliation Pharmacy has completed the medication reconciliation. spoke with patient. Only on terbinafine which he said he took this morning.
[2022-07-17] MEDS: LORazepam 1 MG TABLET 2 MG PO ×2 (17:56→20:58)
[2022-07-17] MEDS: diphenhydrAMINE HCL 25 MG CAPSULE 50 MG PO (17:56)
[2022-07-17 18:21] LABS: COVID-19 Test Negative (Negative); IDNOW Serial# BCCEAD1C
[2022-07-17 20:57] VITALS: BP 138/88; PULSE 112; RESP 18; TEMP 36.7; O2SAT 97
[2022-07-17] MEDS: OLANZapine 10 MG TABLET PO (20:58)
--- NOTE | 2022-07-18 05:39 | PC.NURSE ---
Patient slept through the night, no distress observed/reported, Ativan 2 mg po and Olanzapine 10 mg PO was administered as ordered at 2057 with + effect, patient was assessed care team, disposition is section 12 inpatient bed search, med rec complted/pending provider approval, medication compliant, VSS, behavior non concerning, labs completed/resulted, will continue to monitor.
[2022-07-18 05:55] VITALS: BP 133/85; PULSE 86; RESP 19; TEMP 36.3; O2SAT 97
[2022-07-18] MEDS: Nicotine Polacrilex 2 MG GUM BUCCAL ×2 (11:25→17:02)
--- NOTE | 2022-07-18 11:30 | PC.NURSE ---
asked pt this morning if NF medication could be brought from home. states no one is able to bring in
--- NOTE | 2022-07-18 16:44 | MHC.CARE ---
Pt accepted to the [facility] pending N2N and transportation
== END 2022-07-18 17:12 | disposition other institution (70) ==
PROVIDERS: Physician Assistant; Emergency Provider Student in an Organized Health Care Education/Training Program; PCP Family Medicine
DX: F43.11 Post-traumatic stress disorder, acute (principal); F41.1 Generalized anxiety disorder; R42 Dizziness and giddiness; Z20.822 Contact with and (suspected) exposure to COVID-19; Z20.828 Contact with and (suspected) exposure to other viral communicable diseases; Z79.899 Other long term (current) drug therapy
CPT/HCPCS: 36415; 80048; 80076; 80143; 80179; 80307; 83735; 85025; 87635; 93005; 99285

== ENCOUNTER 2022-12-16 17:53 | Emergency (ER) | payer OTHER, SELFPAY ==
--- NOTE | ~2022-12-16 | CT_ITS ---
EXAMINATION: CT HEAD WITHOUT CONTRAST CLINICAL INFORMATION: New psychotic behavior COMPARISON: 05/07/2013 TECHNIQUE: Contiguous axial imaging was performed from the skull base to vertex without intravenous administration of contrast. This CT examination was performed using dose optimization techniques as appropriate, variously including the following: *Automated exposure control *Adjustment of mA and/or kV according to patient size (this includes techniques or standardized protocols for targeted exams where dose is matched to indication/reason for exam; i.e. extremities or head) *Use of iterative reconstruction technique DLP: 760 mGy-cm FINDINGS: There is no evidence of acute intracranial hemorrhage or territorial infarction. No abnormal mass-effect or midline shift is seen. Funes to white matter differentiation is well preserved. No extra-axial fluid collections are identified. The ventricles are normal in size. There is no abnormal attenuation within the brain parenchyma. The osseous structures and soft tissues are normal. Partially opacified bilateral ethmoid air cells. The mastoid air cells are well-aerated. CT/CT head/brain wo IV con IMPRESSION: No acute intracranial pathology.
--- NOTE | 2022-12-16 18:06 | ED_ITS ---
HPI - Psych General Chief Complaint: Psychiatric Symptoms Stated Complaint: Aggression, Section-12 Time Seen by Provider: 12/16/22 17:58 Source: patient Mode of arrival: ambulatory Limitations: no limitations History of Present Illness HPI Narrative: Patient with history of PTSD/bipolar sent by primary care doctor for psychotic behavior was aggressive with PD a section 12 complaining nonspecific complaints wanted to go to [place] changing thought process very fast was aggressive with the [employer] worker and police denies any SI but wants to go to [place] to kill people. No substance abuse Related Data Home Medications Medication Instructions Recorded Confirmed terbinafine HCl 250 mg tablet 250 mg PO DAILY 07/17/22 12/16/22 Allergies Allergy/AdvReac Type Severity Reaction Status Date / Time aripiprazole [From ABILIFY] Allergy Unknown suicidal Verified 07/17/22 10:50 thoughts Review of Systems 2 Review of Systems: Yes all other systems are reviewed and are negative [facility] Past Medical History Medical History Depression Social History Social History Alcohol intake: current Alcohol intake frequency: a few times a week Alcohol type: beer Smoked in Last 30 Days: Yes Use of substances other than those prescribed or required for medical reasons: Yes Substance Use Type: Marijuana Advance Directives: No Advance Directives Information Provided: No Guardian: No Physical Exam 2 Vital Signs: Vital Signs: Last Vital Signs Temp 98.6 F 12/16/22 18:07 Pulse 100 12/16/22 18:07 Resp 18 12/16/22 18:07 BP 147/84 H 12/16/22 18:07 Pulse Ox 98 12/16/22 18:07 O2 Del Method Room Air 12/16/22 18:07 BMI result Body Mass Index 34.0 Appearance: Alert. Oriented X3. No acute distress. Anxious Eyes: PERRLA, No Nystagmus ENT: Pharynx normal. Oral Mucosa moist Neck: Normal inspection. Neck supple. CVS: Normal heart rate and rhythm. Pulses normal. Respiratory: No respiratory distress. Equal air entry bilateral, no wheezing/rales/rhonchi Abdomen: Soft and nontender. Bowel sounds are present, no mass palpable, no CVA tenderness Skin: Skin warm and dry. Normal skin color. Normal skin turgor. Extremities: No lower extremity edema. No calf tenderness psych; anxious flight of ideas psychotic behavior no SI or HI Neuro: Oriented X 3. No motor deficit. No sensory deficit.No cerebellar signs , cranial nerves II-XII intact Medications Administered Discontinued Medications Generic Name Dose Route Start Last Admin Trade Name Siddhartha PRN Reason Stop Dose Admin Lorazepam 2 mg 12/16/22 18:07 12/16/22 18:19 Lorazepam 1 Mg Tablet PO 12/16/22 18:08 2 mg ONCE ONE Administration Nicotine Polacrilex 2 mg 12/16/22 18:40 12/16/22 18:43 Nicotine Polacrilex Lozenge 2 Mg Lozenge BUCCAL 12/16/22 18:41 2 mg ONCE ONE Administration Nicotine Polacrilex 2 mg 12/16/22 20:29 12/16/22 20:43 Nicotine Polacrilex 2 Mg Gum BUCCAL 12/16/22 20:30 Not Given ONCE ONE Medical Decision Making Medical Decision Making [facility] Narrative: Patient's bipolar/PTSD with racing thoughts no SI but has HI feeling at this time denies any hallucinations. Patient is medically clear to go inpatient psych for further evaluation for psychotic behavior Differential Diagnosis Differential Diagnoses: The differential diagnosis associated with the presentation includes Psychosis/bipolar/PTSD/anxiety Lab Data [facility] Lab Attestation statement: I reviewed the patient's lab results. 12/16/22 18:29 12/16/22 18:29 Labs: Lab Results 12/16/22 12/16/22 Range/Units 18:22 18:29 WBC 11.5 H (4.8-10.8) X10*3/uL RBC 4.72 (4.60-5.80) X10*6/uL Hgb 14.2 (14.0-18.0) g/dl Hct 40.9 L (42.0-52.0) % MCV 86.7 (80.0-98.0) fL MCH 30.1 (27.0-33.0) pg MCHC 34.7 (31.0-36.0) g/dl RDW 12.1 (11.0-16.0) % Plt Count 317 D (160-400) X10*3/uL MPV 8.5 L (9.4-12.4) fL Immature Gran % (Auto) 0.3 (0.0-0.4) % Neut % (Auto) 65.8 (45-73) % Lymph % (Auto) 24.6 (20-40) % [place] % (Auto) 6.0 (2-11) % Eos % (Auto) 2.7 (0-4) % Baso % (Auto) 0.6 (0-2) % Lymph # (Auto) 2.8 (1.2-4.9) X10*3/uL [place] # (Auto) 0.7 (0.1-1.2) X10*3/uL Eos # (Auto) 0.3 (0.0-0.4) X10*3/uL Baso # (Auto) 0.1 (0.0-0.2) X10*3/uL Abs Immat Gran (auto) 0.03 (0.00-0.03) X10*3/uL Absolute Neuts (auto) 7.5 (2.0-8.3) x10*3/uL Absolute Nucleated RBC 0.000 (0.0-0.012) X10*3/uL Nucleated RBC % (auto) 0.0 (0.0-0.2) /100WBC Sodium 139 (135-145) mmol/L Potassium 3.9 (3.3-5.1) mmol/L Chloride 105 (96-108) mmol/L Carbon Dioxide 22 (22-29) mmol/L Anion Gap 16 (12-20) BUN 15 (9-16) mg/dL Creatinine 0.93 (0.5-1.4) mg/dL Estim Creat Clear Calc 122.7 Estimated GFR > 60 Random Glucose 125 H (60-115) mg/dL Calcium 9.6 (8.4-10.2) mg/dL Total Bilirubin 0.2 (0.0-1.0) mg/dL AST 93 H (5-37) U/L ALT 71 H (0-40) U/L Alkaline Phosphatase 62 (39-117) U/L Total Protein 7.0 (6.5-8.0) g/dL Albumin 4.4 (3.5-5.0) g/dL Urine Color Yellow Urine Appearance Cloudy Urine pH 6.5 (5.0-9.0) Ur Specific [place] >= 1.030 H (1.005-1.025) Urine Protein Trace (Neg-Trace) mg/dL Urine Glucose (UA) Negative (Negative) mg/dL Urine Ketones Trace (Negative) mg/dL Urine Blood Negative (Negative) Urine Nitrite Negative (Negative) Ur Leukocyte Esterase Negative (Negative) Salicylates < 5.0 L (15-30) mg/dL Urine Opiates Screen Not Detected (Not Detect) Urine Fentanyl Screen Not Detected (Not Detect) Acetaminophen < 17 (<30) mcg/mL Ur Barbiturates Screen Not Detected (Not Detect) Ur Phencyclidine Scrn Not Detected (Not Detect) Ur Amphetamines Screen Not Detected (Not Detect) U Benzodiazepines Scrn Not Detected (Not Detect) Urine Cocaine Screen Not Detected (Not Detect) U Marijuana (THC) Screen POSITIVE H (Not Detect) Ethyl Alcohol < 10 mg/dL Discharge Plan Discharge Clinical Impression: Bipolar disorder, Acute anxiety Patient Disposition: Still a Patient Prescriptions: No Action terbinafine HCl 250 mg tablet 250 mg PO DAILY Interventions: [place]-Suicide Risk Severity Scale Last Done: 12/16/22 18:25
[2022-12-16 18:07] VITALS: BP 147/84; PULSE 100; PULSE 105; RESP 18; TEMP 37; O2SAT 98; BMI 34.0
[2022-12-16] MEDS: LORazepam 1 MG TABLET 2 MG PO (18:19)
--- NOTE | 2022-12-16 18:26 | PC.NURSE ---
Medicated after much re-direction per mar. Patient unable to hold topic of conversation, talking about past family trauma, his displeasure of the [place] [employer], and his concern with getting a paternity test on his fiance. Snacks and fluids provided, lab work obtained. Denies HI/SI
[2022-12-16 18:33] LABS: MANUAL DIFF FLAG NO
[2022-12-16 18:35] LABS: Basophils Absolute Auto 0.1 X10*3/uL (0.0-0.2); Basophils Percent Auto 0.6 % (0-2); Eosinophils Absolute Auto 0.3 X10*3/uL (0.0-0.4); Eosinophils Percent Auto 2.7 % (0-4); Hematocrit 40.9 % (42.0-52.0); Hemoglobin 14.2 g/dl (14.0-18.0); Imm Gran Abs Auto 0.03 X10*3/uL (0.00-0.03); Imm Gran Pct Auto 0.3 % (0.0-0.4); Lymphocytes Absolute Auto 2.8 X10*3/uL (1.2-4.9); Lymphocytes Percent Auto 24.6 % (20-40); Mean Corpuscular HGB Conc 34.7 g/dl (31.0-36.0); Mean Corpuscular Hemoglobin 30.1 pg (27.0-33.0); Mean Corpuscular Volume 86.7 fL (80.0-98.0); Mean Platelet Volume 8.5 fL (9.4-12.4); Monocytes Absolute Auto 0.7 X10*3/uL (0.1-1.2); Neutrophils Absolute Auto 7.5 x10*3/uL (2.0-8.3); Neutrophils Percent Auto 65.8 % (45-73); Platelet Count 317 X10*3/uL (160-400); Red Blood Count 4.72 X10*6/uL (4.60-5.80); Red Cell Distribution Width 12.1 % (11.0-16.0); White Blood Count 11.5 X10*3/uL (4.8-10.8)
[2022-12-16 18:35] LABS: Appearance Urine Cloudy; Color Urine Yellow; Glucose Urine UA Negative (Negative); Leukocyte Esterase Urine Negative (Negative); Nitrite Urine Negative (Negative); PH 6.5 (5.0-9.0); Specific Gravity - Urine >= 1.030 (1.005-1.025); Urine Blood Negative (Negative); Urine Ketones Trace mg/dL (Negative); Urine Protein Trace mg/dL (Neg-Trace)
[2022-12-16 18:41] LABS: Amphetamine Screen Urine Not Detected (Not Detect); Barbiturates, Urine Not Detected (Not Detect); Benzodiazepines Screen Urine Not Detected (Not Detect); Cannabinoid Screen Urine POSITIVE (Not Detect); Cocaine Screen Urine Not Detected (Not Detect); Fentanyl, urine Not Detected (Not Detect); Opiate Screen Urine Not Detected (Not Detect); Phencyclidine Screen Urine Not Detected (Not Detect)
[2022-12-16] MEDS: Nicotine Polacrilex Lozenge 2 MG LOZENGE BUCCAL (18:43)
[2022-12-16 18:49] LABS: Acetaminophen LAB < 17 mcg/mL (<30); Alanine Aminotransferase 71 U/L (0-40); Albumin Level 4.4 g/dL (3.5-5.0); Alkaline Phosphatase 62 U/L (39-117); Anion Gap 16 (12-20); Aspartate Amino Transferase 93 U/L (5-37); Bilirubin Total 0.2 mg/dL (0.0-1.0); Blood Urea Nitrogen 15 mg/dL (9-16); Calcium 9.6 mg/dL (8.4-10.2); Carbon Dioxide 22 mmol/L (22-29); Chloride 105 mmol/L (96-108); Creatinine Clr Calc Pharmacy 122.7; Estimated Glomerular Filt Rate > 60; Ethanol < 10 mg/dL; Glucose Random 125 mg/dL (60-115); Potassium 3.9 mmol/L (3.3-5.1); Salicylate < 5.0 mg/dL (15-30); Sodium 139 mmol/L (135-145)
--- NOTE | 2022-12-16 22:06 | MHC.CARE ---
Call placed to [facility]. They have a bed. In addition to labs completed, they will need a provider note for medical clearance (already requested Dr. Lopez to complete), a head CT, EKG and Harinder arevalo RN made aware.
--- NOTE | 2022-12-16 22:13 | ECG_ITS ---
Test Reason : BED SEARCH Blood Pressure : / mmHG Vent. Rate : 073 BPM Atrial Rate : 073 BPM P-R Int : 154 ms QRS Dur : 086 ms QT Int : 400 ms P-R-T Axes : 061 055 011 degrees QTc Int : 440 ms Normal sinus rhythm with sinus arrhythmia Normal ECG When compared with ECG of 17-JUL-2022 10:56, No significant change was found Referred By: Esequiel Noland Electronically Signed By:ARACELI HURLEY MD
--- NOTE | 2022-12-16 23:20 | MHC.EDTECH ---
PER ZANE VILLANUEVA ,DOES NOT WANT THIS PCT TO DO EKG UNTIL THE MORNING .
[2022-12-17 05:21] VITALS: BP 141/88; PULSE 87; RESP 16; TEMP 36.4; O2SAT 98
--- NOTE | 2022-12-17 05:51 | PC.NURSE ---
Patient slept through the night, no distress observed/reported, patient was aggressive towards care team clinician, behavior at this time is non concerning, Head CT completed/Negative, EKG completed, per care team [facility], labs completed/resulted, VSS, will continue monitor.
[2022-12-17 06:00] LABS: COVID-19 Test Negative (Negative); IDNOW Serial# BCCEAD1C
[2022-12-17] MEDS: Ibuprofen 400 MG TABLET PO (06:23)
[2022-12-17] MEDS: Nicotine Polacrilex 2 MG GUM BUCCAL ×4 (06:24→18:42)
[2022-12-17] MEDS: LORazepam 1 MG TABLET PO ×3 (10:15→18:57)
[2022-12-17 12:20] VITALS: BP 148/90; PULSE 89; RESP 16; TEMP 36.2; O2SAT 99
--- NOTE | 2022-12-17 13:10 | PC.NURSE ---
Raphael was OOB this morning and was observed in the milieu socializing with staff and peers. Some disorganized thought content but no aggression observed. Appetite is good and Raphael is eating 100% of meals and snacks. He reports the 2mg Lorazepam he took last night was too strong and requested a lower dose. 1mg Lorazepam ordered and given. Raphael has made several phone calls and remained appropriate while on the phone. Some redirection required in the context of him standing at the nurses station. Raphael was responsive to the redirection. Currently in his room sleeping. Staff will continue to monitor for safety and comfort.
[2022-12-17 15:26] VITALS: RESP 18
--- NOTE | 2022-12-17 16:46 | MHC.CARE ---
[facility], [facility] covid test is needed prior to acceptance. [phone] ext [phone] for Deborah. [phone] is the fax #for covid results.
[2022-12-17 17:50] LABS: Influenza A PCR NEGATIVE (Negative); Influenza B PCR NEGATIVE (Negative); Resp Syncy Virus RNA Qual PCR NEGATIVE (Negative); SARS COV2 PCR INHOUSE NEGATIVE (Negative)
--- NOTE | 2022-12-17 18:05 | MHC.CARE ---
PCR covid result recived and sent to the [place].
--- NOTE | 2022-12-17 18:21 | MHC.CARE ---
[facility]. [facility] will be reaching out for N-N and to arrange transport. CARE Team to complete S12a for transport att.
--- NOTE | 2022-12-17 19:00 | PC.NURSE ---
Ambulance arrived to [facility]. Nurse to Nurse done before transfer and Lorazepam 1mg given PO. PT agreeable and calm.
== END 2022-12-17 19:06 ==
PROVIDERS: Internal Medicine; Emergency Provider Emergency Medicine Emergency Medical Services
DX: F31.9 Bipolar disorder, unspecified (principal); F41.9 Anxiety disorder, unspecified; R45.850 Homicidal ideations; R45.1 Restlessness and agitation; Z20.822 Contact with and (suspected) exposure to COVID-19; Z20.828 Contact with and (suspected) exposure to other viral communicable diseases; F32.A Depression, unspecified; F43.10 Post-traumatic stress disorder, unspecified; F12.90 Cannabis use, unspecified, uncomplicated; Z79.899 Other long term (current) drug therapy
CPT/HCPCS: 0241U; 36415; 70450; 80053; 80143; 80179; 80307; 81003; 85025; 87635; 93005; 99285; S9485

== ENCOUNTER 2024-04-07 07:50 | Emergency (ER) | payer OTHER, SELFPAY ==
[2024-04-07 08:06] VITALS: BP 119/77; BP 130/0; PULSE 65; PULSE 72; RESP 18; TEMP 36.6; O2SAT 97; BMI 33.9
[2024-04-07 09:28] LABS: MANUAL DIFF FLAG NO
[2024-04-07 09:32] LABS: Basophils Absolute Auto 0.1 X10*3/uL (0.0-0.2); Basophils Percent Auto 0.9 % (0-2); Eosinophils Absolute Auto 0.3 X10*3/uL (0.0-0.4); Eosinophils Percent Auto 4.3 % (0-4); Hematocrit 43.1 % (42.0-52.0); Hemoglobin 14.9 g/dl (14.0-18.0); Imm Gran Abs Auto 0.01 X10*3/uL (0.00-0.03); Imm Gran Pct Auto 0.2 % (0.0-0.4); Lymphocytes Absolute Auto 1.9 X10*3/uL (1.2-4.9); Lymphocytes Percent Auto 31.6 % (20-40); Mean Corpuscular HGB Conc 34.6 g/dl (31.0-36.0); Mean Corpuscular Hemoglobin 29.9 pg (27.0-33.0); Mean Corpuscular Volume 86.5 fL (80.0-98.0); Mean Platelet Volume 8.7 fL (9.4-12.4); Monocytes Absolute Auto 0.4 X10*3/uL (0.1-1.2); Monocytes Percent Auto 7.1 % (2-11); Neutrophils Absolute Auto 3.3 x10*3/uL (2.0-8.3); Neutrophils Percent Auto 55.9 % (45-73); Platelet Count 232 X10*3/uL (160-400); Red Blood Count 4.98 X10*6/uL (4.60-5.80); White Blood Count 5.9 X10*3/uL (4.8-10.8)
[2024-04-07] MEDS: Nicotine Polacrilex 2 MG GUM BUCCAL ×5 (09:36→20:44)
[2024-04-07 09:44] LABS: Alanine Aminotransferase 84 U/L (0-40); Albumin Level 4.7 g/dL (3.5-5.0); Alkaline Phosphatase 57 U/L (39-117); Anion Gap 12 (12-20); Aspartate Amino Transferase 41 U/L (5-37); Bilirubin Total 0.3 mg/dL (0.0-1.0); Blood Urea Nitrogen 13 mg/dL (9-16); Calcium 9.6 mg/dL (8.4-10.2); Carbon Dioxide 24 mmol/L (22-29); Chloride 107 mmol/L (96-108); Creatinine Clr Calc Pharmacy 117.3; Estimated Glomerular Filt Rate > 60; Glucose Random 125 mg/dL (60-115); Potassium 4.4 mmol/L (3.3-5.1); Sodium 139 mmol/L (135-145); Total Protein 7.3 g/dL (6.5-8.0)
--- NOTE | 2024-04-07 10:13 | ED_ITS ---
HPI - Psych General Chief Complaint: Psychiatric Symptoms Stated Complaint: SEC 12, MANIC PER EMS Time Seen by Provider: 04/07/24 09:30 Source: patient, EMS, RN notes reviewed and old records reviewed Mode of arrival: EMS Limitations: no limitations History of Present Illness ED Provider: Tomasa HERRON Narrative: Patient is a 38-year-old male with history of bipolar disorder presenting to the emergency department with erratic behavior, impaired judgment and impulse control, disorganization. He denies drug or alcohol use. Denies suicidal or homicidal ideation. Denies auditory or visual hallucinations. He denies physical complaints. complaint: other Related Data Home Medications ?Medication ?Instructions ?Recorded ?Confirmed terbinafine HCl 250 mg tablet 250 mg PO DAILY 07/17/22 12/16/22 Allergies Allergy/AdvReac Type Severity Reaction Status Date / Time aripiprazole [From ABILIFY] Allergy Unknown suicidal Verified 04/07/24 08:09 thoughts Review of Systems 2 Review of Systems: As per HPI Yes all other systems are reviewed and are negative Constitutional: Constitutional: Reports as per HPI [facility] Past Medical History Medical History Depression Social History Social History Alcohol intake: current Alcohol intake frequency: 0-2 drinks per day Alcohol type: beer Smoked in Last 30 Days: Yes Use of substances other than those prescribed or required for medical reasons: No Substance Use Type: Marijuana Advance Directives: No Do you have a plan to hurt others: No Plan Physical Exam 2 Vital Signs: Vital Signs: Last Vital Signs Temp 97.8 F 04/07/24 08:06 Pulse 65 04/07/24 08:06 Resp 18 04/07/24 08:06 BP 119/77 04/07/24 08:06 Pulse Ox 97 04/07/24 08:06 O2 Del Method Room Air 04/07/24 08:06 BMI result Body Mass Index 33.9 Vital signs have been reviewed and appear to be correct. Blood pressure normal. Heart rate normal. Respiratory rate normal. Temperature normal. Oxygen saturation normal. Const: General: cooperative, healthy appearing and no acute distress O rientation/consciousness: oriented to person, oriented to place, oriented to time and patient oriented x3 Limitations: no limitations HEENT: Head: Yes normocephalic and Yes atraumatic Ears: external ears normal General nose exam: Normal external nose present Face and sinus: Yes face symmetric Mouth: oropharynx normal and moist mucous membranes Throat: Yes uvula midline Eyes: Pupils: Equal, round and reactive pupils present Neck: Neck: Yes normal visual inspection and Yes supple Resp: Effort & Inspection: normal respiratory effort and able to speak in complete sentences Auscultation: clear to auscultation bilaterally Cardio: Rate: regular rate Rhythm: regular rhythm Heart sounds: S1 normal heart sound present and S2 normal heart sound present GI: Palpation (GI): Soft to palpation and nontender Auscultation: n ormoactive bowel sounds : General: Yes no CVA tenderness Back/Spine/Pelvis: Back: no CVA tenderness Skin: General skin exam: elasticity normal and turgor normal Neuro: General: oriented to person, oriented to place, oriented to time, patient oriented x3, moves all extremities, no focal motor deficits and CN's II- XI intact bilaterally Cranial nerves: Yes Equal, round and reactive pupils present Cognition (Neuro): normal cognition Extrem: General: Yes full ROM, Yes no pedal edema and Yes no calf tenderness Psych: Appearance: grossly normal Mental Status: mental status grossly normal Speech and movement: Pressured speech present Affect: Anxious affect present Attitude: cooperative Thought process: Racing thoughts present Thought content: suicidality, no homicidality and no hallucinations Course Reevaluation(s) Reevaluation #1: Per CARE team patient will be [facility]. Time: 15:28 Medications Administered Generic Name Dose Route Start Last Admin Trade Name Freq PRN Reason Stop Dose Admin Nicotine Polacrilex 2 mg 04/07/24 09:25 04/07/24 14:36 Nicotine Polacrilex 2 Mg Gum BUCCAL 2 mg Q2H PRN Administration Nicotine Cravings Medical Decision Making Medical Decision Making MDM Narrative: Patient is a 38-year-old male with history of bipolar disorder presenting to the emergency department with erratic behavior, impaired judgment and impulse control, disorganization. On exam patient is awake, A+Ox3, VS WNL, afebrile, normal neurological exam without focal deficits, physical exam findings as above. Given reported symptoms and physical exam findings, initial differential includes but is not limited to bipolar disorder, ron, anxiety. Labs unremarkable. Will place patient on physician observation at this time for CARE team evaluation. Differential Diagnosis Differential Diagnoses: The differential diagnosis associated with the presentation includes As per [facility] Admission/Observation Consideration of admission/observation: Escalation of care including admission/observation considered Consult Healthcare Provider Management of the patient was discussed with: Behavioral Health Provider Lab Data [facility] Lab Attestation statement: I reviewed the patient's lab results. As per [facility] 04/07/24 09:17 04/07/24 09:17 Labs: Lab Results 04/07/24 04/07/24 04/07/24 Range/Units 09:17 12:34 13:51 WBC 5.9 (4.8-10.8) X10*3/uL RBC 4.98 (4.60-5.80) X10*6/uL Hgb 14.9 (14.0-18.0) g/dl Hct 43.1 (42.0-52.0) % MCV 86.5 (80.0-98.0) fL MCH 29.9 (27.0-33.0) pg MCHC 34.6 (31.0-36.0) g/dl RDW 12.0 (11.0-16.0) % Plt Count 232 D (160-400) X10*3/uL MPV 8.7 L (9.4-12.4) fL Immature Gran % (Auto) 0.2 (0.0-0.4) % Neut % (Auto) 55.9 (45-73) % Lymph % (Auto) 31.6 (20-40) % [place] % (Auto) 7.1 (2-11) % Eos % (Auto) 4.3 H (0-4) % Baso % (Auto) 0.9 (0-2) % Lymph # (Auto) 1.9 (1.2-4.9) X10*3/uL [place] # (Auto) 0.4 (0.1-1.2) X10*3/uL Eos # (Auto) 0.3 (0.0-0.4) X10*3/uL Baso # (Auto) 0.1 (0.0-0.2) X10*3/uL Abs Immat Gran (auto) 0.01 (0.00-0.03) X10*3/uL Absolute Neuts (auto) 3.3 (2.0-8.3) x10*3/uL Absolute Nucleated RBC 0.000 (0.0-0.012) X10*3/uL Nucleated RBC % (auto) 0.0 (0.0-0.2) /100WBC Sodium 139 (135-145) mmol/L Potassium 4.4 (3.3-5.1) mmol/L Chloride 107 (96-108) mmol/L Carbon Dioxide 24 (22-29) mmol/L Anion Gap 12 (12-20) BUN 13 (9-16) mg/dL Creatinine 0.97 (0.5-1.4) mg/dL Estim Creat Clear Calc 117.3 Estimated GFR > 60 Random Glucose 125 H (60-115) mg/dL Calcium 9.6 (8.4-10.2) mg/dL Total Bilirubin 0.3 (0.0-1.0) mg/dL Direct Bilirubin 0.1 (0.0-0.5) mg/dL AST 41 H (5-37) U/L ALT 84 H (0-40) U/L Alkaline Phosphatase 57 (39-117) U/L Total Protein 7.3 (6.5-8.0) g/dL Albumin 4.7 (3.5-5.0) g/dL TSH 0.65 (0.32-4.0) uIU/mL Urine Color Yellow Urine Appearance Clear Urine pH 6.5 (5.0-9.0) Ur Specific [place] <= 1.005 (1.005-1.025) Urine Protein Negative (Neg-Trace) mg/dL Urine Glucose (UA) Negative (Negative) mg/dL Urine Ketones Negative (Negative) mg/dL Urine Blood Negative (Negative) Urine Nitrite Negative (Negative) Ur Leukocyte Esterase Negative (Negative) Urine Opiates Screen Not Detected (Not Detect) Ur Buprenorphine Scrn Not Detected (Not Detect) ng/mL Ur Oxycodone Screen Not Detected (Not Detect) ng/mL Urine Methadone Screen Not Detected (Not Detect) ng/mL Urine Fentanyl Screen Not Detected (Not Detect) Ur Barbiturates Screen Not Detected (Not Detect) Ur Phencyclidine Scrn Not Detected (Not Detect) Ur Amphetamines Screen Not Detected (Not Detect) U Benzodiazepines Scrn Not Detected (Not Detect) Urine Cocaine Screen Not Detected (Not Detect) U Marijuana (THC) Screen Not Detected (Not Detect) Ethyl Alcohol < 10 mg/dL COVID-19 ([facility]) Negative (Negative) COVID-19 Clin Com See Note External Record Review External record reviewed: Inpatient record, Office record and Outpatient record Discharge Plan Discharge Clinical Impression: Bipolar disorder Patient Disposition: Still a Patient Prescriptions: No Action terbinafine HCl 250 mg tablet 250 mg PO DAILY Interventions: [place]-Suicide Risk Severity Scale Last Done: 04/07/24 12:21 Print Language: Yemeni
[2024-04-07 12:48] LABS: Appearance Urine Clear; Color Urine Yellow; Glucose Urine UA Negative (Negative); Leukocyte Esterase Urine Negative (Negative); Nitrite Urine Negative (Negative); PH 6.5 (5.0-9.0); Specific Gravity - Urine <= 1.005 (1.005-1.025); Urine Blood Negative (Negative); Urine Ketones Negative (Negative); Urine Protein Negative (Neg-Trace)
--- NOTE | 2024-04-07 13:00 | ECG_ITS ---
Test Reason : medical clearance Blood Pressure : */* mmHG Vent. Rate : 68 BPM Atrial Rate : 68 BPM P-R Int : 148 ms QRS Dur : 92 ms QT Int : 380 ms P-R-T Axes : 16 45 18 degrees QTcB Int : 404 ms Normal sinus rhythm Normal ECG When compared with ECG of 17-Dec-2022 05:12, No significant change was found Referred By: Kali Oliveira Electronically Signed By: Yasir Vicente
[2024-04-07 13:02] LABS: Amphetamine Screen Urine Not Detected (Not Detect); Barbiturates, Urine Not Detected (Not Detect); Benzodiazepines Screen Urine Not Detected (Not Detect); Buprenorphine Scr Not Detected (Not Detect); Cannabinoid Screen Urine Not Detected (Not Detect); Cocaine Screen Urine Not Detected (Not Detect); Fentanyl, urine Not Detected (Not Detect); Methadone Screen, Urine Not Detected (Not Detect); Opiate Screen Urine Not Detected (Not Detect); Oxycodone Screen Urine Not Detected (Not Detect); Phencyclidine Screen Urine Not Detected (Not Detect)
--- NOTE | 2024-04-07 13:34 | PC.NURSE ---
Raphael asked for a hydroxizine when I finally got an order for it. I offered him the hydroxizine and he stated he didn't want it and that I'm trying to push pharmaceuticals on him. Did not give it but kept order in just in case he changed his mind.
[2024-04-07 13:57] LABS: Thyroid Stimulating Hormone 0.65 uIU/mL (0.32-4.0)
[2024-04-07 14:04] LABS: Bilirubin Direct 0.1 mg/dL (0.0-0.5); Ethanol < 10 mg/dL
--- NOTE | 2024-04-07 14:05 | MHC.CARE ---
Pt will be an inpatient psychiatric bedsearch
[2024-04-07 14:25] LABS: COVID-19 Test Negative (Negative); IDNOW Serial# 08D9AD1C
[2024-04-07 16:00] VITALS: RESP 16
[2024-04-07 20:34] VITALS: BP 127/78; PULSE 100; RESP 18; TEMP 36.6; O2SAT 98
[2024-04-07 22:17] VITALS: BP 128/80; PULSE 100; RESP 18; TEMP 36.6; O2SAT 99
== END 2024-04-07 22:19 ==
PROVIDERS: Emergency Provider Emergency Medicine; PCP Physician Assistant
DX: F31.9 Bipolar disorder, unspecified (principal); Z79.899 Other long term (current) drug therapy; Z11.52 Encounter for screening for COVID-19
CPT/HCPCS: 36415; 80053; 80307; 81003; 82248; 84443; 85025; 87635; 93005; 99285; S9485

== ENCOUNTER → 2024-04-07 13:00 | Outpatient (BNV) | payer MEDICARE, SELFPAY | PROVIDERS: Emergency Provider Emergency Medicine; PCP Physician Assistant; Visit Provider Internal Medicine Cardiovascular Disease | DX: Z13.6 Encounter for screening for cardiovascular disorders (principal) | CPT/HCPCS: 93010 ==

== ENCOUNTER 2024-06-25 08:32 | Emergency (ER) | payer OTHER, SELFPAY ==
[2024-06-25 08:54] VITALS: BP 107/48; BP 124/76; PULSE 60; PULSE 82; RESP 18; TEMP 36.7; O2SAT 100; O2SAT 98; BMI 33.7
[2024-06-25 09:00] VITALS: BP 107/48; PULSE 60; RESP 18; TEMP 36.7; O2SAT 98
--- NOTE | 2024-06-25 09:01 | PC.NURSE ---
Pt comes to ED today via EMS after allegedly waking into a police station [facility]. Pt presents as calm, cooperative, and hyperverbal. VSS Pt c/o bilat Achilles tendon pain d/t excessive walking--Pt reports walking 30 miles yesterday. Pt reports he would like to get the [facility] for [facility] as he is having a hard time controlling his PTSD and Anxiety. Pt also reports difficulty with eating well. He states he will often restrict himself from foods or swap out whole foods for liquids. Pt changed over into hospital attire upon arrival. Awaiting ED provider orders.
--- NOTE | 2024-06-25 09:04 | ECG_ITS ---
Test Reason : CP Blood Pressure : */* mmHG Vent. Rate : 61 BPM Atrial Rate : 61 BPM P-R Int : 160 ms QRS Dur : 96 ms QT Int : 432 ms P-R-T Axes : 16 34 8 degrees QTcB Int : 434 ms Normal sinus rhythm Normal ECG When compared with ECG of 07-Apr-2024 13:38, No significant change was found Referred By: Coco Chen Electronically Signed By: JANINA MENCHACA
--- NOTE | 2024-06-25 09:07 | ED.PSYCH ---
HPI - Psych General Chief Complaint: Behavioral Concerns Stated Complaint: SEEKING MENTAL HEALTH EVAL,-SI PER EMS Time Seen by Provider: 06/25/24 17:10 Source: patient Mode of arrival: EMS Limitations: no limitations History of Present Illness ED Provider: NITA HERRON Narrative: 38 yo male with PMH of HLD, PTSD, depression states he wants to go to the [place] 3 day bed rest. He has depression but no SI/HI. He denies drug use but wants a nicotine patch. He has no injuries. He states his heart hurts from stress. He has stable housing. He has never been here before for this. He is eating a sandwhich during interview. MD complaint: feels depressed Onset (ago): week(s) Duration: getting worse History of same: Yes Relieving factors: none Exacerbating factors: none Context: significant life stressor Associated psychiatric symptoms: depression Associated symptoms: denies other symptoms Treatments prior to arrival: none Related Data Home Medications ?Medication ?Instructions ?Recorded ?Confirmed No Known Home Meds 04/07/24 06/25/24 Allergies Allergy/AdvReac Type Severity Reaction Status Date / Time aripiprazole [From ABILIFY] Allergy Unknown suicidal Verified 06/25/24 08:56 thoughts Review of Systems Review of Systems: Constitutional : No Fever, No Chills ENT/Mouth : No Ear Pain, No Nasal Congestion, No sore throat Eyes: No Eye Pain, No Swelling, No Redness Cardiovascular : No Chest Pain, No SOB Respiratory : No Cough, No Sputum, No Dyspnea Gastrointestinal : No Nausea, No Vomiting, No Diarrhea, No Hematochezia, No Melena Genitourinary : No Dysuria, No Urinary Frequency, No Hematuria Musculoskeletal : No Myalgias Skin : No Skin Lesions, No rash Neuro : No Weakness, No Numbness, No Paresthesias, No Dizziness, No Headache Psych : positive Anxiety, positive Depression, no SI/HI All other systems reviewed and are negative [facility] Past Medical History Attestation statement: The following information was validated with the patient. Source: old records reviewed Medical History Depression Social History Social History (Updated 06/25/24 @ 09:18 by Coco Chen DO) Alcohol intake: current Alcohol intake frequency: 0-2 drinks per day Alcohol type: beer Patient Tobacco Use Status: Current everyday Tobacco user Smoked in Last 30 Days: Yes Use of substances other than those prescribed or required for medical reasons: No Substance Use Type: Marijuana Advance Directives: No Advance Directives Information Provided: Yes Do you have a plan to hurt others: No Plan Physical Exam Vital Signs: Vital Signs: Last Vital Signs Temp 98.1 F 06/25/24 09:00 Pulse 60 06/25/24 09:00 Resp 18 06/25/24 09:00 BP 107/48 L 06/25/24 09:00 Pulse Ox 98 06/25/24 09:00 O2 Del Method Room Air 06/25/24 09:00 BMI result Body Mass Index 33.7 Appearance: Alert. Oriented X3. No acute distress. hyperverbal Eyes: Pupils equal, round and reactive to light. ENT: Pharynx normal. Neck: Normal inspection. Neck supple. CVS: Normal heart rate and rhythm. Pulses normal. Respiratory: No respiratory distress. Breath sounds normal. Abdomen: Soft and nontender. Skin: Skin warm and dry. Normal skin color. Normal skin turgor. Extremities: No lower extremity edema. No calf ttp Neuro: Oriented X 3. No motor deficit. No sensory deficit. CN2-12 intact Course Reevaluation(s) Reevaluation #1: Time: 17:17 Date: 06/25/24 Provider: Kali Oliveira MD Physician observation ended at 17:17. The patient is a 38-year-old male who was here with depression. He has been medically cleared and seen by the care team. Arrangements has been made for him to be admitted to the [place] [facility] for ongoing treatment of his depression. The patient is agreeable to the transfer. The patient will be transferred by ambulance. Time: 17:18 Medical Decision Making Medical Decision Making MDM Narrative: 38 yo male with PMH of HLD, PTSD, depression here with c/o needing a break and wants to get cleared prior to going to [place] - he has no SI/HI. He state I know the process he c/o his heart hurting from stress at this time will obtain labs, EKG and trop x 1. He denies drug use. Differential Diagnosis Differential Diagnoses: The differential diagnosis associated with the presentation includes depression, PTSD, drug use Admission/Observation Consideration of admission/observation: Escalation of care including admission/observation considered physician observation started at 930am pending CARE team medically cleared for psychiatric admission Consult Healthcare Provider Management of the patient was discussed with: Behavioral Health Provider Lab Data MDM Lab Attestation statement: I reviewed the patient's lab results. 06/25/24 09:51 06/25/24 09:51 Labs: Lab Results 06/25/24 06/25/24 06/25/24 Range/Units 09:51 11:03 11:43 WBC 5.0 (4.8-10.8) X10*3/uL RBC 4.50 L (4.60-5.80) X10*6/uL Hgb 13.4 L (14.0-18.0) g/dl Hct 38.5 L (42.0-52.0) % MCV 85.6 (80.0-98.0) fL MCH 29.8 (27.0-33.0) pg MCHC 34.8 (31.0-36.0) g/dl RDW 11.9 (11.0-16.0) % Plt Count 181 (160-400) X10*3/uL MPV 8.9 L (9.4-12.4) fL Immature Gran % (Auto) 0.2 (0.0-0.4) % Neut % (Auto) 50.5 (45-73) % Lymph % (Auto) 37.7 (20-40) % Price % (Auto) 5.2 (2-11) % Eos % (Auto) 5.6 H (0-4) % Baso % (Auto) 0.8 (0-2) % Lymph # (Auto) 1.9 (1.2-4.9) X10*3/uL Price # (Auto) 0.3 (0.1-1.2) X10*3/uL Eos # (Auto) 0.3 (0.0-0.4) X10*3/uL Baso # (Auto) 0.0 (0.0-0.2) X10*3/uL Abs Immat Gran (auto) 0.01 (0.00-0.03) X10*3/uL Absolute Neuts (auto) 2.6 (2.0-8.3) x10*3/uL Absolute Nucleated RBC 0.000 (0.0-0.012) X10*3/uL Nucleated RBC % (auto) 0.0 (0.0-0.2) /100WBC Hold Purple Top PT (10.9-12.4) SEC INR (0.9-1.1) Sodium 140 (135-145) mmol/L Potassium 3.9 (3.3-5.1) mmol/L Chloride 108 (96-108) mmol/L Carbon Dioxide 26 (22-29) mmol/L Anion Gap 10 L (12-20) BUN 16 (9-16) mg/dL Creatinine 0.86 (0.5-1.4) mg/dL Estim Creat Clear Calc 130.8 Estimated GFR > 60 Random Glucose 147 H (60-115) mg/dL Calcium 9.2 (8.4-10.2) mg/dL Magnesium 1.8 (1.6-2.6) mg/dL Total Bilirubin 0.4 (0.0-1.0) mg/dL Direct Bilirubin 0.1 (0.0-0.5) mg/dL AST 34 (5-37) U/L ALT 48 H (0-40) U/L Alkaline Phosphatase 65 (39-117) U/L Troponin I High Sens < 2.7 (<3.5-35.0) ng/L Total Protein 6.3 L (6.5-8.0) g/dL Albumin 4.3 (3.5-5.0) g/dL TSH 0.81 (0.32-4.0) uIU/mL Urine Color Yellow Urine Appearance Clear Urine pH 5.5 (5.0-9.0) Ur Specific [place] <= 1.005 (1.005-1.025) Urine Protein Negative (Neg-Trace) mg/dL Urine Glucose (UA) Negative (Negative) mg/dL Urine Ketones Negative (Negative) mg/dL Urine Blood Negative (Negative) Urine Nitrite Negative (Negative) Ur Leukocyte Esterase Negative (Negative) Urine Opiates Screen Not Detected (Not Detect) Ur Buprenorphine Scrn Not Detected (Not Detect) ng/mL Ur Oxycodone Screen Not Detected (Not Detect) ng/mL Urine Methadone Screen Not Detected (Not Detect) ng/mL Urine Fentanyl Screen Not Detected (Not Detect) Ur Barbiturates Screen Not Detected (Not Detect) Ur Phencyclidine Scrn Not Detected (Not Detect) Ur Amphetamines Screen Not Detected (Not Detect) U Benzodiazepines Scrn Not Detected (Not Detect) Urine Cocaine Screen Not Detected (Not Detect) U Marijuana (THC) Screen Not Detected (Not Detect) Ethyl Alcohol < 10 mg/dL Influenza Type A (PCR) NEGATIVE (Negative) Influenza Type B (PCR) NEGATIVE (Negative) RSV RNA Qual (PCR) NEGATIVE (Negative) SARS-CoV-2 RNA (RT-PCR) NEGATIVE (Negative) 06/25/24 Range/Units 12:45 WBC (4.8-10.8) X10*3/uL RBC (4.60-5.80) X10*6/uL Hgb (14.0-18.0) g/dl Hct (42.0-52.0) % MCV (80.0-98.0) fL MCH (27.0-33.0) pg MCHC (31.0-36.0) g/dl RDW (11.0-16.0) % Plt Count (160-400) X10*3/uL MPV (9.4-12.4) fL Immature Gran % (Auto) (0.0-0.4) % Neut % (Auto) (45-73) % Lymph % (Auto) (20-40) % Price % (Auto) (2-11) % Eos % (Auto) (0-4) % Baso % (Auto) (0-2) % Lymph # (Auto) (1.2-4.9) X10*3/uL Price # (Auto) (0.1-1.2) X10*3/uL Eos # (Auto) (0.0-0.4) X10*3/uL Baso # (Auto) (0.0-0.2) X10*3/uL Abs Immat Gran (auto) (0.00-0.03) X10*3/uL Absolute Neuts (auto) (2.0-8.3) x10*3/uL Absolute Nucleated RBC (0.0-0.012) X10*3/uL Nucleated RBC % (auto) (0.0-0.2) /100WBC Hold Purple Top SEE NOTE PT 11.9 (10.9-12.4) SEC INR 1.0 (0.9-1.1) Sodium (135-145) mmol/L Potassium (3.3-5.1) mmol/L Chloride (96-108) mmol/L Carbon Dioxide (22-29) mmol/L Anion Gap (12-20) BUN (9-16) mg/dL Creatinine (0.5-1.4) mg/dL Estim Creat Clear Calc Estimated GFR Random Glucose (60-115) mg/dL Calcium (8.4-10.2) mg/dL Magnesium (1.6-2.6) mg/dL Total Bilirubin (0.0-1.0) mg/dL Direct Bilirubin (0.0-0.5) mg/dL AST (5-37) U/L ALT (0-40) U/L Alkaline Phosphatase (39-117) U/L Troponin I High Sens (<3.5-35.0) ng/L Total Protein (6.5-8.0) g/dL Albumin (3.5-5.0) g/dL TSH (0.32-4.0) uIU/mL Urine Color Urine Appearance Urine pH (5.0-9.0) Ur Specific [place] (1.005-1.025) Urine Protein (Neg-Trace) mg/dL Urine Glucose (UA) (Negative) mg/dL Urine Ketones (Negative) mg/dL Urine Blood (Negative) Urine Nitrite (Negative) Ur Leukocyte Esterase (Negative) Urine Opiates Screen (Not Detect) Ur Buprenorphine Scrn (Not Detect) ng/mL Ur Oxycodone Screen (Not Detect) ng/mL Urine Methadone Screen (Not Detect) ng/mL Urine Fentanyl Screen (Not Detect) Ur Barbiturates Screen (Not Detect) Ur Phencyclidine Scrn (Not Detect) Ur Amphetamines Screen (Not Detect) U Benzodiazepines Scrn (Not Detect) Urine Cocaine Screen (Not Detect) U Marijuana (THC) Screen (Not Detect) Ethyl Alcohol mg/dL Influenza Type A (PCR) (Negative) Influenza Type B (PCR) (Negative) RSV RNA Qual (PCR) (Negative) SARS-CoV-2 RNA (RT-PCR) (Negative) Independent Interpretation I performed an independent interpretation of an: EKG Interpretation: Rate: 61 Rhythm: NSR [place]: normal Normal P waves. Normal JOSH. Normal QRS complex. ST T wave : normal no IVORY qTC: 434 prior studies: no acute ischemia The study has been interpreted contemporaneously by me. . Independent Historian Clinical information obtained from an independent historian. History obtained from or confirmed by: EMS Discharge Plan Discharge Clinical Impression: Depression Qualifiers: Depression Type: unspecified Qualified Code(s): F32.A - Depression, unspecified Patient Disposition: Xfer Psychiatric Hosp Transfer Details: [place] Prescriptions: No Action No Known Home Meds Print Language: Haitian
[2024-06-25 09:55] LABS: MANUAL DIFF FLAG NO
[2024-06-25 09:59] LABS: Basophils Percent Auto 0.8 % (0-2); Eosinophils Absolute Auto 0.3 X10*3/uL (0.0-0.4); Eosinophils Percent Auto 5.6 % (0-4); Hematocrit 38.5 % (42.0-52.0); Hemoglobin 13.4 g/dl (14.0-18.0); Imm Gran Abs Auto 0.01 X10*3/uL (0.00-0.03); Imm Gran Pct Auto 0.2 % (0.0-0.4); Lymphocytes Absolute Auto 1.9 X10*3/uL (1.2-4.9); Lymphocytes Percent Auto 37.7 % (20-40); Mean Corpuscular HGB Conc 34.8 g/dl (31.0-36.0); Mean Corpuscular Hemoglobin 29.8 pg (27.0-33.0); Mean Corpuscular Volume 85.6 fL (80.0-98.0); Mean Platelet Volume 8.9 fL (9.4-12.4); Monocytes Absolute Auto 0.3 X10*3/uL (0.1-1.2); Monocytes Percent Auto 5.2 % (2-11); Neutrophils Absolute Auto 2.6 x10*3/uL (2.0-8.3); Neutrophils Percent Auto 50.5 % (45-73); Platelet Count 181 X10*3/uL (160-400); Red Cell Distribution Width 11.9 % (11.0-16.0)
[2024-06-25 10:13] LABS: Alanine Aminotransferase 48 U/L (0-40); Albumin Level 4.3 g/dL (3.5-5.0); Alkaline Phosphatase 65 U/L (39-117); Anion Gap 10 (12-20); Aspartate Amino Transferase 34 U/L (5-37); Bilirubin Direct 0.1 mg/dL (0.0-0.5); Bilirubin Total 0.4 mg/dL (0.0-1.0); Blood Urea Nitrogen 16 mg/dL (9-16); Calcium 9.2 mg/dL (8.4-10.2); Carbon Dioxide 26 mmol/L (22-29); Chloride 108 mmol/L (96-108); Creatinine Clr Calc Pharmacy 130.8; Estimated Glomerular Filt Rate > 60; Ethanol < 10 mg/dL; Glucose Random 147 mg/dL (60-115); Magnesium 1.8 mg/dL (1.6-2.6); Potassium 3.9 mmol/L (3.3-5.1); Sodium 140 mmol/L (135-145); Total Protein 6.3 g/dL (6.5-8.0)
[2024-06-25 10:25] LABS: Troponin-I High Sensitivity < 2.7 ng/L (<3.5-35.0)
--- NOTE | 2024-06-25 10:54 | PC.NURSE ---
Pt will be transitioning to pod. RN to RN report completed with ZANE Anderson.
--- NOTE | 2024-06-25 11:09 | PC.NURSE ---
Patient reports takes no home meds , only takes 600mg ibuprofen prn
[2024-06-25 11:41] LABS: Amphetamine Screen Urine Not Detected (Not Detect); Barbiturates, Urine Not Detected (Not Detect); Benzodiazepines Screen Urine Not Detected (Not Detect); Buprenorphine Scr Not Detected (Not Detect); Cannabinoid Screen Urine Not Detected (Not Detect); Cocaine Screen Urine Not Detected (Not Detect); Fentanyl, urine Not Detected (Not Detect); Methadone Screen, Urine Not Detected (Not Detect); Opiate Screen Urine Not Detected (Not Detect); Oxycodone Screen Urine Not Detected (Not Detect); Phencyclidine Screen Urine Not Detected (Not Detect)
[2024-06-25 12:31] LABS: Influenza A PCR NEGATIVE (Negative); Influenza B PCR NEGATIVE (Negative); Resp Syncy Virus RNA Qual PCR NEGATIVE (Negative); SARS COV2 PCR INHOUSE NEGATIVE (Negative)
[2024-06-25 13:01] LABS: Prothrombin Time 11.9 SEC (10.9-12.4)
[2024-06-25 13:11] LABS: Appearance Urine Clear; Color Urine Yellow; Glucose Urine UA Negative (Negative); Leukocyte Esterase Urine Negative (Negative); Nitrite Urine Negative (Negative); PH 5.5 (5.0-9.0); Specific Gravity - Urine <= 1.005 (1.005-1.025); Urine Blood Negative (Negative); Urine Ketones Negative (Negative); Urine Protein Negative (Neg-Trace)
[2024-06-25 13:24] LABS: Thyroid Stimulating Hormone 0.81 uIU/mL (0.32-4.0)
--- NOTE | 2024-06-25 15:15 | MHC.CARE ---
Pt assessed by the CARE Team and [facility] bedsearch.
== END 2024-06-25 17:50 ==
PROVIDERS: Emergency Medicine; Emergency Provider Emergency Medicine; PCP Physician Assistant
DX: F32.A Depression, unspecified (principal); F41.9 Anxiety disorder, unspecified; F43.10 Post-traumatic stress disorder, unspecified; R07.9 Chest pain, unspecified; E78.5 Hyperlipidemia, unspecified; Z03.818 Encounter for observation for suspected exposure to other biological agents ruled out; F17.200 Nicotine dependence, unspecified, uncomplicated
CPT/HCPCS: 0241U; 36415; 80048; 80076; 80307; 81003; 83735; 84443; 84484; 85025; 85610; 93005; 99284; 99285; S9485

== ENCOUNTER → 2024-06-25 09:04 | Outpatient (BNV) | payer OTHER, SELFPAY | PROVIDERS: Emergency Provider Emergency Medicine; PCP Physician Assistant; Visit Provider Internal Medicine | DX: R07.9 Chest pain, unspecified (principal) | CPT/HCPCS: 93010 ==

== ENCOUNTER 2024-07-14 06:51 | Emergency (ER) | payer OTHER, SELFPAY ==
[2024-07-14] VITALS (7 sets, daily range): BP systolic 109–137; BP diastolic 48–85; PULSE 60–78; RESP 16–18; TEMP 36.4–37; O2SAT 94–99; BMI 33.9
--- NOTE | 2024-07-14 | ECG_ITS ---
Test Reason : MEDICAL CLEARANCE Blood Pressure : */* mmHG Vent. Rate : 67 BPM Atrial Rate : 67 BPM P-R Int : 154 ms QRS Dur : 84 ms QT Int : 384 ms P-R-T Axes : 24 50 28 degrees QTcB Int : 405 ms Normal sinus rhythm Normal ECG When compared with ECG of 25-Jun-2024 09:41, No significant change was found Referred By: Yanick Benito Electronically Signed By: KARYN ADAM MD
--- NOTE | 2024-07-14 07:14 | PC.NURSE ---
Addendum entered by Theresa Good RN 07/14/24 07:25: Pt denies SI/HI at this time. Pts belongings placed on shelf 3 in [employer] by security. Original Note: Pt comes to ED today via EMS for c/o his heart pain d/t lead paint in his house and his water pump is green-blue. Per EMS, Pt well known and has Hx Bipolar with lapses in medication compliance. Pt walked into fire station today asking for help because his heart hurt and he is sick from the lead paint in his house. Pt is A&Ox3 and very restless on arrival. Pt is frequently moving around is his room area, removed his shirt, and attempted to put his bracelets on his ankles. He is also observed stretching and doing squat like movements. Pt is cooperative with care and changeover operator process. Pt c/o 7/10 pain to L chest x8 months in which he describes as a sharp pinching. VSS Speech is clear and concise, however Pt is hyper-verbal. Awaiting ED provider orders. Pt is currently pacing about room.
--- NOTE | 2024-07-14 08:06 | ED_ITS ---
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 Onset (ago): day(s) (1) Radiation: non-radiation Relieving factors: none Exacerbating factors: none Associated symptoms: denies other symptoms Related Data Home Medications ?Medication ?Instructions ?Recorded ?Confirmed No Known Home Meds 04/07/24 06/25/24 Allergies Allergy/AdvReac Type Severity Reaction Status Date / Time aripiprazole [From ABILIFY] Allergy Unknown suicidal Verified 07/14/24 07:08 thoughts Review of Systems 2 Constitutional: Constitutional: Reports no additional constitutional complaints ENT: Reports system reviewed and no additional complaints, except as documented Psychiatric: Psychiatric: Reports no additional psychiatric complaints and Reports as per [facility] Past Medical History Attestation statement: The following information was validated with the patient. [facility] Narrative: Bipolar disorder Medical History Depression Social History Social History Alcohol intake: current Alcohol intake frequency: 0-2 drinks per day Alcohol type: beer Patient Tobacco Use Status: Current everyday Tobacco user Smoked in Last 30 Days: Yes Use of substances other than those prescribed or required for medical reasons: No Substance Use Type: Marijuana Advance Directives: No Advance Directives Information Provided: Yes Do you have a plan to hurt others: No Plan Physical Exam ED Vital Signs: Vital Signs - 24 hr 07/14/24 07:03 07/14/24 07:09 07/14/24 08:02 Temperature 97.9 F 97.9 F 97.6 F Pulse Rate 63 63 60 Respiratory Rate 16 16 16 Blood Pressure 137/73 137/73 119/48 L Pulse Oximetry 98 98 94 Oxygen Delivery Method Room Air Room Air Room Air 07/14/24 10:35 07/14/24 12:30 07/14/24 14:03 Temperature 97.7 F 97.6 F Pulse Rate 63 77 Respiratory Rate 18 18 18 Blood Pressure 119/72 132/83 Pulse Oximetry 98 95 Oxygen Delivery Method Room Air Room Air BMI result Body Mass Index 33.9 No acute distress Const General: cooperative Nutritional Appearance: average body habitus Orientation/consciousness: patient oriented x3 Limitations: no limitations HENMT Head: Yes normal to inspection General nose exam: Normal external nose present Face and sinus: Yes normal facial exam Mouth: Normal oral and palatal mucosa present Throat: Yes posterior oropharynx normal Neck Neck: Yes normal visual inspection Chest Chest palpation & inspection: normal inspection of the chest Resp Effort & Inspection: normal respiratory effort Auscultation: clear to auscultation bilaterally Cardio Jugular venous distension: no JVD Rate: regular rate Rhythm: regular rhythm GI Inspection: Yes normal to inspection Palpation (GI): Soft to palpation, not firm, nontender and no guarding Auscultation: normal bowel sounds Skin General skin exam: no rashes or lesions noted and elasticity normal Lesions: no lesions Rashes: no rashes Neuro General: patient oriented x3 Cranial nerves: Yes CN's II-XII intact bilaterally Medications Administered Generic Name Dose Route Start Last Admin Trade Name Freq PRN Reason Stop Dose Admin Nicotine Polacrilex 2 mg 07/14/24 16:28 07/14/24 16:44 Nicotine Polacrilex 2 Mg Gum BUCCAL 2 mg Q2H PRN Administration Nicotine Cravings Medical Decision Making Medical Decision Making [facility] Narrative: Patient presented with erratic behavior delusional we will get psych eval Differential Diagnosis Differential Diagnoses: The differential diagnosis associated with the presentation includes Bipolar disorder/anxiety/substance abuse Lab Data [facility] Lab Attestation statement: I reviewed the patient's lab results. 07/14/24 11:45 07/14/24 11:45 Labs: Lab Results 07/14/24 07/14/24 07/14/24 Range/Units 08:57 11:45 11:47 WBC 6.2 (4.8-10.8) X10*3/uL RBC 4.58 L (4.60-5.80) X10*6/uL Hgb 13.6 L (14.0-18.0) g/dl Hct 38.4 L (42.0-52.0) % MCV 83.8 (80.0-98.0) fL MCH 29.7 (27.0-33.0) pg MCHC 35.4 (31.0-36.0) g/dl RDW 11.9 (11.0-16.0) % Plt Count 215 (160-400) X10*3/uL MPV 8.7 L (9.4-12.4) fL Immature Gran % (Auto) 0.3 (0.0-0.4) % Neut % (Auto) 53.4 (45-73) % Lymph % (Auto) 32.9 (20-40) % Eddy % (Auto) 6.8 (2-11) % Eos % (Auto) 6.0 H (0-4) % Baso % (Auto) 0.6 (0-2) % Lymph # (Auto) 2.0 (1.2-4.9) X10*3/uL [place] # (Auto) 0.4 (0.1-1.2) X10*3/uL Eos # (Auto) 0.4 (0.0-0.4) X10*3/uL Baso # (Auto) 0.0 (0.0-0.2) X10*3/uL Abs Immat Gran (auto) 0.02 (0.00-0.03) X10*3/uL Absolute Neuts (auto) 3.3 (2.0-8.3) x10*3/uL Absolute Nucleated RBC 0.000 (0.0-0.012) X10*3/uL Nucleated RBC % (auto) 0.0 (0.0-0.2) /100WBC PT 11.1 (10.9-12.4) SEC INR 1.0 (0.9-1.1) Sodium 140 (135-145) mmol/L Potassium 4.0 (3.3-5.1) mmol/L Chloride 110 H (96-108) mmol/L Carbon Dioxide 22 (22-29) mmol/L Anion Gap 12 (12-20) BUN 16 (9-16) mg/dL Creatinine 0.95 (0.5-1.4) mg/dL Estim Creat Clear Calc 118.9 Estimated GFR > 60 Random Glucose 160 H (60-115) mg/dL Calcium 9.0 (8.4-10.2) mg/dL Total Bilirubin 0.3 (0.0-1.0) mg/dL Direct Bilirubin 0.1 (0.0-0.5) mg/dL AST 42 H (5-37) U/L ALT 54 H (0-40) U/L Alkaline Phosphatase 71 (39-117) U/L Total Protein 6.7 (6.5-8.0) g/dL Albumin 4.5 (3.5-5.0) g/dL Urine Color Yellow Urine Appearance Clear Urine pH 6.0 (5.0-9.0) Ur Specific [place] <= 1.005 (1.005-1.025) Urine Protein Negative (Neg-Trace) mg/dL Urine Glucose (UA) Negative (Negative) mg/dL Urine Ketones Negative (Negative) mg/dL Urine Blood Negative (Negative) Urine Nitrite Negative (Negative) Ur Leukocyte Esterase Negative (Negative) Urine RBC 0-2 (0-2) /HPF Urine WBC 0-5 (0-5) /HPF Ur Squamous Epith Cells 0-2 (0-2) /HPF Urine Bacteria None Seen (None Seen) Hyaline Casts 0-2 (0-2) /LPF Urine Opiates Screen Not Detected (Not Detect) Ur Buprenorphine Scrn Not Detected (Not Detect) ng/mL Ur Oxycodone Screen Not Detected (Not Detect) ng/mL Urine Methadone Screen Not Detected (Not Detect) ng/mL Urine Fentanyl Screen Not Detected (Not Detect) Ur Barbiturates Screen Not Detected (Not Detect) Ur Phencyclidine Scrn Not Detected (Not Detect) Ur Amphetamines Screen Not Detected (Not Detect) U Benzodiazepines Scrn Not Detected (Not Detect) Urine Cocaine Screen Not Detected (Not Detect) U Marijuana (THC) Screen Not Detected (Not Detect) Ethyl Alcohol < 10 mg/dL Influenza Type A (PCR) NEGATIVE (Negative) Influenza Type B (PCR) NEGATIVE (Negative) RSV RNA Qual (PCR) NEGATIVE (Negative) SARS-CoV-2 RNA (RT-PCR) NEGATIVE (Negative) Independent Interpretation I performed an independent interpretation of an: EKG Interpretation: Normal sinus rhythm heart rate 67 beats per minute normal interval QTC 405 milliseconds no acute STT wave changes no acute ischemia Discharge Plan Discharge Clinical Impression: Bipolar disorder Patient Disposition: Xfer [facility]iatric [facility] Prescriptions: No Action No Known Home Meds Print Language: Danish
[2024-07-14 09:04] LABS: Appearance Urine Clear; Color Urine Yellow; Glucose Urine UA Negative (Negative); Leukocyte Esterase Urine Negative (Negative); Nitrite Urine Negative (Negative); Specific Gravity - Urine <= 1.005 (1.005-1.025); Urine Blood Negative (Negative); Urine Ketones Negative (Negative); Urine Protein Negative (Neg-Trace)
[2024-07-14 09:07] LABS: Bacteria Urine None Seen (None Seen); Hyaline Casts Urine 0-2 /LPF (0-2); RBC Urine 0-2 /HPF (0-2); Squamous Epithelial Cell Urine 0-2 /HPF (0-2); WBC Urine 0-5 /HPF (0-5)
[2024-07-14 09:16] LABS: Amphetamine Screen Urine Not Detected (Not Detect); Barbiturates, Urine Not Detected (Not Detect); Benzodiazepines Screen Urine Not Detected (Not Detect); Buprenorphine Scr Not Detected (Not Detect); Cannabinoid Screen Urine Not Detected (Not Detect); Cocaine Screen Urine Not Detected (Not Detect); Fentanyl, urine Not Detected (Not Detect); Methadone Screen, Urine Not Detected (Not Detect); Opiate Screen Urine Not Detected (Not Detect); Oxycodone Screen Urine Not Detected (Not Detect); Phencyclidine Screen Urine Not Detected (Not Detect)
--- NOTE | 2024-07-14 10:37 | MHC.CARE ---
Pt meets the criteria for [facility] and [facility]. Section 12a in chart. Provider in agreement.
--- NOTE | 2024-07-14 11:03 | PC.NURSE ---
admissions requests the following for Pts [place] bed search: COVID testing PT/INR BMP CBC w/diff Liver Panel Blood ETOH EKG Orders entered.
[2024-07-14 11:52] LABS: MANUAL DIFF FLAG NO
[2024-07-14 11:54] LABS: Basophils Percent Auto 0.6 % (0-2); Eosinophils Absolute Auto 0.4 X10*3/uL (0.0-0.4); Hematocrit 38.4 % (42.0-52.0); Hemoglobin 13.6 g/dl (14.0-18.0); Imm Gran Abs Auto 0.02 X10*3/uL (0.00-0.03); Imm Gran Pct Auto 0.3 % (0.0-0.4); Lymphocytes Percent Auto 32.9 % (20-40); Mean Corpuscular HGB Conc 35.4 g/dl (31.0-36.0); Mean Corpuscular Hemoglobin 29.7 pg (27.0-33.0); Mean Corpuscular Volume 83.8 fL (80.0-98.0); Mean Platelet Volume 8.7 fL (9.4-12.4); Monocytes Absolute Auto 0.4 X10*3/uL (0.1-1.2); Monocytes Percent Auto 6.8 % (2-11); Neutrophils Absolute Auto 3.3 x10*3/uL (2.0-8.3); Neutrophils Percent Auto 53.4 % (45-73); Platelet Count 215 X10*3/uL (160-400); Red Blood Count 4.58 X10*6/uL (4.60-5.80); Red Cell Distribution Width 11.9 % (11.0-16.0); White Blood Count 6.2 X10*3/uL (4.8-10.8)
--- NOTE | 2024-07-14 11:58 | MHC.EDTECH ---
pt refused EKG @[id number]
[2024-07-14 12:02] LABS: Prothrombin Time 11.1 SEC (10.9-12.4)
[2024-07-14 12:09] LABS: Alanine Aminotransferase 54 U/L (0-40); Albumin Level 4.5 g/dL (3.5-5.0); Alkaline Phosphatase 71 U/L (39-117); Anion Gap 12 (12-20); Aspartate Amino Transferase 42 U/L (5-37); Bilirubin Direct 0.1 mg/dL (0.0-0.5); Bilirubin Total 0.3 mg/dL (0.0-1.0); Blood Urea Nitrogen 16 mg/dL (9-16); Carbon Dioxide 22 mmol/L (22-29); Chloride 110 mmol/L (96-108); Creatinine Clr Calc Pharmacy 118.9; Estimated Glomerular Filt Rate > 60; Ethanol < 10 mg/dL; Glucose Random 160 mg/dL (60-115); Sodium 140 mmol/L (135-145); Total Protein 6.7 g/dL (6.5-8.0)
[2024-07-14 12:32] LABS: Influenza A PCR NEGATIVE (Negative); Influenza B PCR NEGATIVE (Negative); Resp Syncy Virus RNA Qual PCR NEGATIVE (Negative); SARS COV2 PCR INHOUSE NEGATIVE (Negative)
--- NOTE | 2024-07-14 16:18 | PC.NURSE ---
verbal nurse to nurse report given to ZANE Obando in the pod
--- NOTE | 2024-07-14 16:21 | PC.NURSE ---
pt to pod via ed it security architect
[2024-07-14] MEDS: Nicotine Polacrilex 2 MG GUM BUCCAL (16:44)
--- NOTE | 2024-07-14 17:42 | MHC.CARE ---
Raphael Quinones accepted to [facility] for today. 7p pickup, accepting is Dr. Messina
== END 2024-07-14 19:02 ==
PROVIDERS: Emergency Provider Emergency Medicine; PCP Physician Assistant
DX: F31.64 Bipolar disorder, current episode mixed, severe, with psychotic features (principal); Z79.899 Other long term (current) drug therapy; Z03.818 Encounter for observation for suspected exposure to other biological agents ruled out; F17.210 Nicotine dependence, cigarettes, uncomplicated; Z51.81 Encounter for therapeutic drug level monitoring
CPT/HCPCS: 0241U; 36415; 80048; 80076; 80307; 81001; 85025; 85610; 93005; 99284; 99285; S9485

== ENCOUNTER → 2024-07-14 15:33 | Outpatient (BNV) | payer OTHER, SELFPAY | PROVIDERS: Emergency Provider Emergency Medicine; PCP Physician Assistant; Visit Provider Internal Medicine Cardiovascular Disease | DX: Z13.6 Encounter for screening for cardiovascular disorders (principal) | CPT/HCPCS: 93010 ==

== ENCOUNTER 2024-10-28 08:55 | Emergency (ER) | payer OTHER, SELFPAY ==
[2024-10-28 09:02] VITALS: BP 145/94; BP 148/94; PULSE 88; RESP 16; TEMP 36.9; O2SAT 97; BMI 36.6
--- NOTE | 2024-10-28 10:00 | ED_ITS ---
HPI - General Adult General Chief complaint: Psychiatric Symptoms Stated complaint: [id number] by [employer] incoherent sentences Time Seen by Provider: 10/28/24 08:59 Source: patient, RN notes reviewed and old records reviewed Mode of arrival: EMS Limitations: no limitations History of Present Illness ED Provider: Thalia HPI narrative: 38-year-old male with past medical history significant for bipolar, PTSD presents [facility] The patient was placed on a section 12 by [place] police after he was apparently going in and out of the police department and speaking incoherently The patient reports that he needs to ?get a restraining order to the girl I proposed to, get a print up, and then [facility]. He denies any suicidal ideation but states that he has lots of things he needs to take care of He denies any somatic complaints Related Data Home Medications ?Medication ?Instructions ?Recorded ?Confirmed No Known Home Meds 04/07/24 06/25/24 Allergies Allergy/AdvReac Type Severity Reaction Status Date / Time aripiprazole (From ABILIFY) Allergy Unknown suicidal Verified 10/28/24 09:09 thoughts Review of Systems 2 Constitutional: Constitutional: Denies body ache(s), Denies chills, Denies fever(s) and Denies headache(s) Eyes: Eyes: Denies blurry vision ENT: Denies vertigo, Denies dizziness and Denies headache(s) Cardiovascular: Cardiovascular: Denies chest pain and Denies dyspnea on exertion Respiratory: Respiratory: Denies cough and Denies dyspnea on exertion Gastrointestinal: Gastrointestinal: Denies abdominal pain, Denies nausea and Denies vomiting Musculoskeletal: Musculoskeletal: Denies back pain Integumentary/Breasts: Skin/Breast: Denies rash Neurologic: Denies vertigo, Denies dizziness and Denies headache(s) Psychiatric: Psychiatric: Denies anxiety PMFSH Past Medical History Medical History Depression Social History Social History Alcohol intake: current Alcohol intake frequency: 0-2 drinks per day Alcohol type: beer Patient Tobacco Use Status: Current everyday Tobacco user Substance Use Type: Marijuana Advance Directives: No Advance Directives Information Provided: No Physical Exam ED Vital Signs: Vital Signs - 24 hr 10/28/24 09:02 10/28/24 15:27 10/28/24 16:07 Temperature 98.4 F 98 F 98 F Pulse Rate 88 90 90 Respiratory Rate 16 20 20 Blood Pressure 148/94 H 119/62 119/62 Pulse Oximetry 97 95 95 Oxygen Delivery Method Room Air Room Air Room Air BMI result Body Mass Index 36.6 Const General: healthy appearing, comfortable, no acute distress, alert and awake Nutritional Appearance: well nourished Orientation/consciousness: patient oriented x3 HENMT Head: Yes normocephalic and Yes atraumatic Eyes Eyelids: Yes eyelids normal Conjunctivae: conjunctivae normal Sclerae: sclerae normal Corneas: corneas normal Pupils: Equal, round and reactive pupils present EOM: EOMs intact bilaterally Neck Neck: Yes full ROM Resp Effort & Inspection: normal respiratory effort, able to speak in complete sentences and not labored GI Inspection: No distended Palpation (GI): Soft to palpation, not firm, nontender, no guarding and not rigid Skin General skin exam: elasticity normal Neuro General: patient oriented x3 Cranial nerves: Yes Equal, round and reactive pupils present and Yes Bilaterally intact EOM present Cognition (Neuro): normal cognition Extrem Other: Moving all extremities well without any obvious deformities Psych Appearance: grossly normal Speech and movement: Pressured speech present Affect: Animated affect present Attitude: cooperative Thought process: Flight of ideas present Thought content: suicidality, no homicidality and Paranoid delusions present Insight: Limited insight present (Psych) Judgement: Limited judgement present (Psych) Course Reevaluation(s) Reevaluation #1: Patient is seen with the care team and will be a bed search for inpatient psychiatric 12. He was placed on a section 12 and plan for transport to the [facility] Time: 15:45 Medications Administered Discontinued Medications Generic Name Dose Route Start Last Admin Trade Name Freq PRN Reason Stop Dose Admin Nicotine Polacrilex 2 mg 10/28/24 09:27 10/28/24 15:31 Nicotine Polacrilex 2 Mg Gum BUCCAL 2 mg Q2H PRN Administration Nicotine Cravings Medical Decision Making Medical Decision Making MDM Narrative: 38-year-old male presents for evaluation on a section 12 from, Police Department. The patient is speaking with pressured speech, he has loose association, he does have a history of bipolar disorder and appears to be manic. He has no somatic complaints but is requesting a nicotine gum. Plan for medical clearance and care team evaluation. Differential Diagnosis Differential Diagnoses: The differential diagnosis associated with the presentation includes Bipolar disorder Medication noncompliance Sandra Substance abuse Admission/Observation Consideration of admission/observation: Escalation of care including admission/observation considered Lab Data MDM Lab Attestation statement: I reviewed the patient's lab results. No leukocytosis or anemia. Normal platelet count. No significant electrolyte abnormalities warranting intervention 10/28/24 10:13 10/28/24 10:13 Labs: Lab Results 10/28/24 10/28/24 10/28/24 Range/Units 10:06 10:13 12:11 WBC 6.7 (4.8-10.8) X10*3/uL RBC 5.06 (4.60-5.80) X10*6/uL Hgb 14.7 (14.0-18.0) g/dl Hct 42.3 (42.0-52.0) % MCV 83.6 (80.0-98.0) fL MCH 29.1 (27.0-33.0) pg MCHC 34.8 (31.0-36.0) g/dl RDW 11.9 (11.0-16.0) % Plt Count 242 (160-400) X10*3/uL MPV 8.5 L (9.4-12.4) fL Immature Gran % (Auto) 0.3 (0.0-0.4) % Neut % (Auto) 63.1 (45-73) % Lymph % (Auto) 24.9 (20-40) % [place] % (Auto) 7.7 (2-11) % Eos % (Auto) 3.2 (0-4) % Baso % (Auto) 0.8 (0-2) % Lymph # (Auto) 1.7 (1.2-4.9) X10*3/uL [place] # (Auto) 0.5 (0.1-1.2) X10*3/uL Eos # (Auto) 0.2 (0.0-0.4) X10*3/uL Baso # (Auto) 0.1 (0.0-0.2) X10*3/uL Abs Immat Gran (auto) 0.02 (0.00-0.03) X10*3/uL Absolute Neuts (auto) 4.2 (2.0-8.3) x10*3/uL Absolute Nucleated RBC 0.000 (0.0-0.012) X10*3/uL Nucleated RBC % (auto) 0.0 (0.0-0.2) /100WBC PT (10.9-12.4) SEC INR (0.9-1.1) Sodium 138 (135-145) mmol/L Potassium 4.2 (3.3-5.1) mmol/L Chloride 106 (96-108) mmol/L Carbon Dioxide 26 (22-29) mmol/L Anion Gap 10 L (12-20) BUN 18 H (9-16) mg/dL Creatinine 1.10 (0.5-1.4) mg/dL Estim Creat Clear Calc 103.3 Estimated GFR > 60 Random Glucose 99 (60-115) mg/dL Calcium 9.5 (8.4-10.2) mg/dL Total Bilirubin 0.5 (0.0-1.0) mg/dL Direct Bilirubin (0.0-0.5) mg/dL AST 56 H (5-37) U/L ALT 73 H (0-40) U/L Alkaline Phosphatase 63 (39-117) U/L Total Protein 7.4 (6.5-8.0) g/dL Albumin 5.3 H (3.5-5.0) g/dL Urine Color Yellow Urine Appearance Clear Urine pH 7.0 (5.0-9.0) Ur Specific [place] 1.020 (1.005-1.025) Urine Protein Negative (Neg-Trace) mg/dL Urine Glucose (UA) Negative (Negative) mg/dL Urine Ketones Negative (Negative) mg/dL Urine Blood Negative (Negative) Urine Nitrite Negative (Negative) Ur Leukocyte Esterase Negative (Negative) Salicylates < 5.0 L (15-30) mg/dL Urine Opiates Screen Not Detected (Not Detect) Ur Buprenorphine Scrn Not Detected (Not Detect) ng/mL Ur Oxycodone Screen Not Detected (Not Detect) ng/mL Urine Methadone Screen Not Detected (Not Detect) ng/mL Urine Fentanyl Screen Not Detected (Not Detect) Acetaminophen < 3 (<30) mcg/mL Ur Barbiturates Screen Not Detected (Not Detect) Ur Phencyclidine Scrn Not Detected (Not Detect) Ur Amphetamines Screen Not Detected (Not Detect) U Benzodiazepines Scrn Not Detected (Not Detect) Urine Cocaine Screen Not Detected (Not Detect) U Marijuana (THC) Screen Not Detected (Not Detect) Ethyl Alcohol < 10 mg/dL 10/28/24 Range/Units 12:20 WBC (4.8-10.8) X10*3/uL RBC (4.60-5.80) X10*6/uL Hgb (14.0-18.0) g/dl Hct (42.0-52.0) % MCV (80.0-98.0) fL MCH (27.0-33.0) pg MCHC (31.0-36.0) g/dl RDW (11.0-16.0) % Plt Count (160-400) X10*3/uL MPV (9.4-12.4) fL Immature Gran % (Auto) (0.0-0.4) % Neut % (Auto) (45-73) % Lymph % (Auto) (20-40) % [place] % (Auto) (2-11) % Eos % (Auto) (0-4) % Baso % (Auto) (0-2) % Lymph # (Auto) (1.2-4.9) X10*3/uL [place] # (Auto) (0.1-1.2) X10*3/uL Eos # (Auto) (0.0-0.4) X10*3/uL Baso # (Auto) (0.0-0.2) X10*3/uL Abs Immat Gran (auto) (0.00-0.03) X10*3/uL Absolute Neuts (auto) (2.0-8.3) x10*3/uL Absolute Nucleated RBC (0.0-0.012) X10*3/uL Nucleated RBC % (auto) (0.0-0.2) /100WBC PT 11.3 (10.9-12.4) SEC INR 1.0 (0.9-1.1) Sodium (135-145) mmol/L Potassium (3.3-5.1) mmol/L Chloride (96-108) mmol/L Carbon Dioxide (22-29) mmol/L Anion Gap (12-20) BUN (9-16) mg/dL Creatinine (0.5-1.4) mg/dL Estim Creat Clear Calc Estimated GFR Random Glucose (60-115) mg/dL Calcium (8.4-10.2) mg/dL Total Bilirubin 0.4 (0.0-1.0) mg/dL Direct Bilirubin 0.1 (0.0-0.5) mg/dL AST 47 H (5-37) U/L ALT 70 H (0-40) U/L Alkaline Phosphatase 62 (39-117) U/L Total Protein 7.2 (6.5-8.0) g/dL Albumin 5.0 (3.5-5.0) g/dL Urine Color Urine Appearance Urine pH (5.0-9.0) Ur Specific [place] (1.005-1.025) Urine Protein (Neg-Trace) mg/dL Urine Glucose (UA) (Negative) mg/dL Urine Ketones (Negative) mg/dL Urine Blood (Negative) Urine Nitrite (Negative) Ur Leukocyte Esterase (Negative) Salicylates (15-30) mg/dL Urine Opiates Screen (Not Detect) Ur Buprenorphine Scrn (Not Detect) ng/mL Ur Oxycodone Screen (Not Detect) ng/mL Urine Methadone Screen (Not Detect) ng/mL Urine Fentanyl Screen (Not Detect) Acetaminophen (<30) mcg/mL Ur Barbiturates Screen (Not Detect) Ur Phencyclidine Scrn (Not Detect) Ur Amphetamines Screen (Not Detect) U Benzodiazepines Scrn (Not Detect) Urine Cocaine Screen (Not Detect) U Marijuana (THC) Screen (Not Detect) Ethyl Alcohol mg/dL Discharge Plan Discharge Clinical Impression: Bipolar disorder Patient Disposition: Xfer Psychiatric Hosp Prescriptions: No Action No Known Home Meds Interventions: [place]-Suicide Risk Severity Scale Last Done: 10/28/24 16:07 Acute Care Transfer Worksheet (ED) Last Done: 10/28/24 16:07 Discharge Date/Time: 10/28/24 15:45 Print Language: Swedish
[2024-10-28 10:23] LABS: MANUAL DIFF FLAG NO
[2024-10-28 10:30] LABS: Hematocrit 42.3 % (42.0-52.0); Hemoglobin 14.7 g/dl (14.0-18.0); Imm Gran Abs Auto 0.02 X10*3/uL (0.00-0.03); Imm Gran Pct Auto 0.3 % (0.0-0.4); Lymphocytes Absolute Auto 1.7 X10*3/uL (1.2-4.9); Mean Corpuscular HGB Conc 34.8 g/dl (31.0-36.0); Mean Corpuscular Hemoglobin 29.1 pg (27.0-33.0); Mean Corpuscular Volume 83.6 fL (80.0-98.0); NRBC Abs Auto 0.000 X10*3/uL (0.0-0.012); NRBC Pct Auto 0.0 /100WBC (0.0-0.2); Platelet Count 242 X10*3/uL (160-400); Red Blood Count 5.06 X10*6/uL (4.60-5.80); White Blood Count 6.7 X10*3/uL (4.8-10.8)
[2024-10-28 10:35] LABS: Cannabinoid Screen Urine Not Detected (Not Detect)
[2024-10-28 10:39] LABS: Acetaminophen LAB < 3 mcg/mL (<30); Salicylate < 5.0 mg/dL (15-30)
[2024-10-28 10:40] LABS: Alanine Aminotransferase 73 U/L (0-40); Albumin Level 5.3 g/dL (3.5-5.0); Alkaline Phosphatase 63 U/L (39-117); Anion Gap 10 (12-20); Aspartate Amino Transferase 56 U/L (5-37); Blood Urea Nitrogen 18 mg/dL (9-16); Calcium 9.5 mg/dL (8.4-10.2); Carbon Dioxide 26 mmol/L (22-29); Chloride 106 mmol/L (96-108); Creatinine Clr Calc Pharmacy 103.3; Estimated Glomerular Filt Rate > 60; Potassium 4.2 mmol/L (3.3-5.1); Sodium 138 mmol/L (135-145); Total Protein 7.4 g/dL (6.5-8.0)
--- OUTSIDE RECORDS SUMMARY | 2024-10-28 11:14 | XMS_ITS | Encounter Summary ---
Author Organization [facility] Address [address] [place] [address] [place] [phone] Phone Care Team Providers Care Precision Machining Instructor Name Role Phone Unknown, Unknown Primary Care Provider Meseret Horta MD Primary Care Provider Pcp, Unknown Primary Care Provider Mac Coronel Primary Care Provid er Encounter Details Date Type Department Care Team (Late st Contact Info) Description 05/04/2020 Procedure Pass [facility], [address] [place] [address] Social History Tobacco Use Types Packs/Day Years Used Date Smoking Tobacco: Never Assessed Sex and Gender Information Value Date Recorded Sex Assigned at Male 11/26/2021 11:05 AM EDT Legal Sex Male 9:42 AM EST Gender Identity Male 11/26/2021 11:05 AM EDT Sexual Orientation Straight 11/26/2021 11 :05 AM EDT documented as of this encounter Plan of Treatment Not on file documented as of this encounter Visit Diagnoses Not on filedocumented in this encounter Care Teams Precision Machining Instructor Relationship Specialty Start Date End Date Unknown, Unknown, PCP - General 05/04/20 05/08/20 Mseeret Garcia MD [address] [place] [id number] PCP - General Family Medicine 05/09/20 10/13/23 Pcp, Unknown PCP - General 10/14/23 05/27/24 Mac Hallman PA [address] [place] [address] PCP - General Physician Day Habilitation Specialist 05/28/24 documented as of this encounter Additional Source Comments The information contained in this document represents components of the legal health record. It is not the complete legal health record.[facility]
--- OUTSIDE RECORDS SUMMARY | 2024-10-28 11:14 | XMS_ITS | Clinical Summary ---
Author Organization [facility] Address [address] [facility] [address] [place] [phone] Phone Care Team Providers Care Business Banking Officer Name Role Phone Mac Hallman Primary Care Provid er Allergies Active Allergy Reactions Criticality Noted Date Comments Aripiprazole 08/03/2020 Zolpidem 08/03/2020 Trazodone 04/15/2022 Other reaction(s): Trazodone Medications acetaminophen (TYLENOL) 500 MG tablet Take 2 tablets (1,000 mg total) by mouth every 6 (six) hours as needed (pain). 2 Active docusate sodium (COLACE) 100 MG capsule Take 2 capsules (200 mg total) by mouth 2 (two) times a day. Take while taking oxycodone. Hold if loose stools. 2 Active Additional Information Patient not taking.Reported on 05/29/2024 ibuprofen (ADVIL,MOTRIN) 600 MG tablet Take 1 tablet (600 mg total) by mouth every 8 (eight) hours as needed (pain). Take with food. 2 Active senna (SENOKOT) 8.6 mg tablet Take 2 tablets by mouth 2 (two) times a day. Take while taking oxycodone. Hold if loose stools. 2 Active Additional Information Patient not taking.Reported on 05/29/2024 oxyCODONE 5 MG immediate release tablet Take 0.5-1 tablets (2.5-5 mg total) by mouth every 4 (four) hours as needed (pain). 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 Closed patellar dislocation, left, initial encou nter 08/04/2020 Patellar tendon rupture, left, initial encounter 08/04/2020 Immunizations Immunization Administration Dates Next Due Influenza Quadrivalent Prese rvative Free IM 12/26/2021(Deferred: Contraindication) Social History Tobacco Use Types Packs/Day Years Used Date Smoking Tobacco: Some Days Cigarettes 0.5 15 Started: 11/26/2006; Last attempted to quit: 11/26/2021 Smokeless Tobacco: Never Tobacco Cessation:Ready to Q uit: Not Asked; Counseling Given: Not Answered Comments:quit on 11/26, on nicotine lozanges gum Alcohol Use Standard Drinks/Week Comments Yes 2 (1 standard drink = 0.6 oz pur e alcohol) Education Answer Date Recorded Are you interested in more education? Not on shawn e 06/28/2022 Are you concerned about learning? Not on file 06/28/2022 No 06/28/2022 No 06/28/2022 Digital Access Answer Date Recorded No 07/30/2022 No 07/30/2022 Reliable internet access at home? Not on file 07/30/2022 Device with a working camera? Not on file Intimate Partner Violence Answer Date R ecorded Are you denied basic needs s uch as food, clothing, or medical care? Deferred 05/29/2024 In the past 12 months have y ou been in a relationship with a person who hurts, threatens, or tries to control you? Deferred 05/29/2024 Are you denied basic needs s [facility] as food, clothing, or medical care? Deferred 05/29/2024 In the past 12 months have y ou been in a relationship with a person who hurts, threatens, or tries to control you? Deferred 05/29/2024 Sex and Gender Information Value Date Recorded Sex Assigned at Male 11/26/2021 11:05 AM EDT Legal Sex Male 9:42 AM EST Gender Identity Male 11/26/2021 11:05 AM EDT Sexual Orientation Straight 11/26/2021 11 :05 AM EDT Last Filed Vital Signs Vital Sign Reading Time Taken Comments Blood Pressure 112/74 05/29/2024 8:10 AM EDT Pulse 72 05/29/2024 8:10 AM EDT Temperature 36.1 C (97 F) 05/29/2024 8:10 AM EDT Respiratory Rate 16 05/29/2024 8:10 AM EDT Oxygen Saturation 95% 05/29/2024 8:10 AM EDT Inhaled Oxygen Concentration - - Weight 97.5 kg (215 lb) 05/28/2024 2:49 PM EDT Height 172.7 cm (5' 8 ) 05/28/2024 2:49 PM EDT Body Mass Index 32.69 05/28/2024 2:49 PM EDT Plan of Treatment Health Maintenance Due Date Last Done Comments LIPID PANEL 1986 DEPRESSION SCREENING 1998 SMOKING Hx and SMOKELESS TOBACCO SCREENING 12/02/1999 HEPATITIS C SCREENING 2004 HIV ONE-TIME SCREENING (18-6 5 YEARS) 2004 PNEUMOCOCCAL VACCINES (0-49 years) (2 of 2 - PCV) 01/02/2018 01/02/2017, 05/29/2015 COVID-19 VACCINE (2023-2 5 season) 2023 03/17/2021, 08/31/2020, 06/13/2020 Adult Td,Tdap Booster 05/28/2025 05/29/2015 , 11/08/2013, 04/10/2005 SCREENING FOR DIABETES 05/29/2027 05/28/2024 HEPATITIS A VACCINES Aged Out No long er eligible based on patient's age to complete this topic HIB VACCINES Aged Out No longer eligi ble based on patient's age to complete this topic MENINGOCOCCAL VACCINES (ACWY) Aged Out No longer eligible based on patient's age to complete this topic MENINGOCOCCAL VACCINES (B) Aged Out N o longer eligible based on patient's age to complete this topic Medical Devices Implanted Type Area Logistics Planning Manager Device Identifier Shelf Expiration Date Model / Serial / Lot Mesh Mesh [employer] MEDICARE PART A & B MEDICARE PART A & B [employer] MEDICARE PART A & B MEDICARE PART A & B MEDICARE PART A & B MEDICARE PART A & [place] [address] [place] [address] MEDICARE PART A & B [employer] MEDICARE PART A & B [employer] MEDICARE PART A & B [employer] Advance Directives For more information, please contact: [phone] (9AM - 5PM [facility], Friday-Friday) * Full Code (Latest Code Status on File) Date Activated Date Inactivated Comments 12/25/2021 6:01 AM Question Answer Comments Code Status Confirmed With: Patient Care Teams Business Banking Officer Relationship Specialty Start Date End Date Mac Hallman PA [address] [place] [address] PCP - General Physician Application Penetration Tester 05/28/24 Additional Source Comments The information contained in this document represents components of the legal health record. It is not the complete legal health record.[facility]
--- OUTSIDE RECORDS SUMMARY | 2024-10-28 11:14 | XMS_ITS | Encounter Summary ---
Author Organization [facility] Address [address] [place] [address] [place] [phone] Phone Care Team Providers Care Remote Encoding Center Manager Name Role Phone Meseret Garcia MD Primary Care Provider Pcp, Unknown Primary Care Provider Mac Coronel Primary Care Provid er Encounter Details Date Type Department Care Team (Late st Contact Info) Description 09/29/2020 Procedure Pass [place] Admitting Dept - Virtual Department [address] [place] [address] Social History Tobacco Use Types Packs/Day Years Used Date Smoking Tobacco: Every Day Cigarettes 1 15 Smokeless Tobacco: Never Alcohol Use Standard Drinks/Week Comments Yes 10 (1 standard drink = 0.6 oz pu re alcohol) Sex and Gender Information Value Date Recorded Sex Assigned at Male 11/26/2021 11:05 AM EDT Legal Sex Male 9:42 AM EST Gender Identity Male 11/26/2021 11:05 AM EDT Sexual Orientation Straight 11/26/2021 11 :05 AM EDT documented as of this encounter Plan of Treatment Not on file documented as of this encounter Visit Diagnoses Not on filedocumented in this encounter Care Teams Remote Encoding Center Manager Relationship Specialty Start Date End Date Meseret Garcia MD [address] [place] [phone] PCP - General Family Medicine 05/09/20 10/13/23 Pcp, Unknown PCP - General 10/14/23 05/27/24 Mac Hallman PA [address] [place] [address] PCP - General Physician Range Ecologist 05/28/24 documented as of this encounter Additional Source Comments The information contained in this document represents components of the legal health record. It is not the complete legal health record.[facility]
--- OUTSIDE RECORDS SUMMARY | 2024-10-28 11:14 | XMS_ITS | Encounter Summary ---
Author Organization [facility] Address [address] [facility] [address] [place] [phone] Phone Care Team Providers Care Nut And Bolt Assembler Name Role Phone Unknown, Unknown Primary Care Provider Meseret Horta MD Primary Care Provider Pcp, Unknown Primary Care Provider Mac Coronel Primary Care Provid er Reason for Referral * MRI/CAT Scan - Closed Specialty Diagnoses / Procedures Referred By Contac t Referred To Contact Radiology Diagnoses Other specified injuries of right ankle, initial encounter Procedures MRI Ankle (Right) Cirilo Nicholas PA Phone: tel: mailto: Referral ID Status Reason Start Date Expiration Date Visits Re quested Visits Authorized [id number] Closed 05/04/2020 07/03/2020 1 1 Encounter Details Date Type Department Care Team (Latest Contact Info) Description 05/04/2020 Transcribe Orders Virtual Department [address] [place] [address] Cirilo Nicholas PA [address] [place] [address] [email or web address] Other specified injuries of right ankle, initial encounter (Primary Dx) Social History Tobacco Use Types Packs/Day Years [...] on file documented as of this encounter Results * MRI ANKLE WITHOUT CONTRAST (RIGHT) (05/12/2020 9:11 AM EST) Anatomical Region Laterality Modality Ankle Right Magnetic Resonan ce 05/12/2020 9:27 AM EST Impressions 05/12/2020 9:41 AM EST Marrow edema in the posterior edge of the distal tibia indicating contusion or nondisplaced fracture. Moderate joint effusion but no obvious soft tissue or other bony injury. POS [id number] Narrative 05/12/2020 9:41 AM EST TECHNIQUE: Nonenhanced exam. 1.5 Catalina scanner. The order describes curvilinear lucency posterior to the posterior malleolus, question fracture. Ankle mortise is preserved. Small plantar enthesophyte. . Images not available. FINDINGS: A moderate-sized ankle effusion is present. There is mild edema along the posterior aspect of the distal tibia, more prominent on the lateral side,. No obvious displaced cortical fracture of the bony detail is poor. No other marrow edema is seen in the ankle, hindfoot or midfoot to suggest a bony injury elsewhere. No tendinopathy or injury is apparent. The visualized major ankle ligaments seem intact. There are several cysts subchondral cysts incidentally noted in the central calcaneus and lower talus just deep to the attachments of the cervical ligament, clearly chronic and benign. No worrisome focal bony normalities Procedure Note Jay Bro MD - 05/12/2020 TECHNIQUE: Nonenhanced exam. 1.5 Catalina scanner. The order describes curvilinear lucency posterior to the posteriormalleolus, question fracture. Ankle mortise is preserved. Small plantarenthesophyte. . Images not available. FINDINGS: A moderate-sized ankle effusion is present. There is mild edema along the posterior aspect of the distal tibia, moreprominent on the lateral side,. No obvious displaced cortical fracture ofthe bony detail is poor. No other marrow edema is seen in the ankle, hindfoot or midfoot to suggesta bony injury elsewhere. No tendinopathy or injury is apparent. The visualized major ankle ligaments seem intact. There are several cysts subchondral cysts incidentally noted in thecentral calcaneus and lower talus just deep to the attachments of thecervical ligament, clearly chronic and benign. No worrisome focal bonynormalities IMPRESSION: Marrow edema in the posterior edge of the distal tibia indicatingcontusion or nondisplaced fracture. Moderate joint effusion but no obvioussoft tissue or other bony injury. POS [id number] Cirilo ATKINSON IMG MR EXTREMITY Final Res ult documented in this encounter Visit Diagnoses Diagnosis Other specified injuries of right ankle, initial encounter- Primary Other specified injuries of right ankle, initial encounter documented in this encounter Care Teams Nut And Bolt Assembler Relationship Specialty Start Date End Date Unknown, Unknown, PCP - General 05/04/20 05/08/20 Meseret Garcia MD [address] [place] [phone] PCP - General Family Medicine 05/09/20 10/13/23 Pcp, Unknown PCP - General 10/14/23 05/27/24 Mac Hallman PA [address] [place] [address] PCP - General Physician Finish Mixer 05/28/24 documented as of this encounter Additional Source Comments The information contained in this document represents components of the legal health record. It is not the complete legal health record.[facility]
--- OUTSIDE RECORDS SUMMARY | 2024-10-28 11:14 | XMS_ITS | Encounter Summary ---
Author Organization [facility] Address [address] [place] [address] Phone Care Team Providers Care Financial Reporting Advisor Name Role Phone Meseret Garcia MD Primary Care Provider Pcp, Unknown Primary Care Provider Mac Coronel Primary Care Provid er Encounter Details Date Type Department Care Team (Late st Contact Info) Description 12/25/2021 Procedure Pass [facility] PERIOPERATIVE DEPT [address] [place] [phone] Social History Tobacco Use Types Packs/Day Years Used Date Smoking Tobacco: Some Days Cigarettes 0.5 15 Started: 11/26/2006; Last attempted to quit: 11/26/2021 Smokeless Tobacco: Never Comments:quit on 11/26, on ni cotine lozanges gum Alcohol Use Standard Drinks/Week Comments Yes 2 (1 standard drink = 0.6 oz pur e alcohol) Sex and Gender Information Value Date Recorded Sex Assigned at Male 11/26/2021 11:05 AM EDT Legal Sex Male 9:42 AM EST Gender Identity Male 11/26/2021 11:05 AM EDT Sexual Orientation Straight 11/26/2021 11 :05 AM EDT documented as of this encounter Functional Status * Calculated C-SSRS Risk Score (Lifetime/Recent) Answer Date of Assessment Author No Risk Indicated 12/25/2021 3:00 PM EDT Tasneem Landrum, ZANE * [place] Suicide Severity Rating Scale (Screener/Recent Self-Report) Question Answer Date of Assessment Author 1. Wish to be (Past 1 Month) No 12/25/2021 3:00 PM EDT Tasneem Landrum, ZANE 2. Non-Specific Active Suicidal Thoughts (Past 1 Month) No 12/25/2021 3:00 PM EDT Tasneem Landrum, ZANE 6. Suicidal Behavior (Lifetime) No 12/25/2021 3:00 PM EDT Tasneem Landrum, ZANE documented as of this encounter Plan of Treatment Not on file documented as of this encounter Visit Diagnoses Not on filedocumented in this encounter Care Teams Financial Reporting Advisor Relationship Specialty Start Date End Date Meseret Garcia MD [address] [place] [phone] PCP - General Family Medicine 05/09/20 10/13/23 Pcp, Unknown PCP - General 10/14/23 05/27/24 Mac Hallman PA [address] [place] [phone] PCP - General Physician Machinery Rigger 05/28/24 documented as of this encounter Additional Source Comments The information contained in this document represents components of the legal health record. It is not the complete legal health record.[facility]
--- OUTSIDE RECORDS SUMMARY | 2024-10-28 11:15 | XMS_ITS | Encounter Summary ---
Author Organization [facility] Address [address] [facility] [address] [place] [address] Phone Care Team Providers Care Kosher Inspector Name Role Phone Meseret Garcia MD Primary Care Provider Pcp, Unknown Primary Care Provider Mac Coronel Primary Care Provid er Encounter Details Date Type Department Care Team (Late st Contact Info) Description 02/05/2022 Transcribe Orders [facility] Lab [address] [place] [address] José Ariza MD [address] [place] [phone] [email or web address] Social History Tobacco Use Types Packs/Day Years [...] on filedocumented in this encounter Care Teams Kosher Inspector Relationship Specialty Start Date End Date Meseret Garcia MD [address] [place] [phone] PCP - General Family Medicine 05/09/20 10/13/23 Pcp, Unknown PCP - General 10/14/23 05/27/24 Mac Hallman PA [address] [place] [phone] PCP - General Physician Hris Manager 05/28/24 documented as of this encounter Additional Source Comments The information contained in this document represents components of the legal health record. It is not the complete legal health record.[facility]
--- OUTSIDE RECORDS SUMMARY | 2024-10-28 11:15 | XMS_ITS | Encounter Summary ---
Author Organization [facility] Address [address] [facility] [address] [place] [address] Phone Care Team Providers Care Dry Cell Sealer Name Role Phone Meseret Garcia MD Primary Care Provider Pcp, Unknown Primary Care Provider Mac Coronel Primary Care Provid er Encounter Details Date Type Department Care Team (Late st Contact Info) Description 08/04/2020 Procedure Pass [facility], [address] [place] [address] Social History Tobacco Use Types Packs/Day Years Used Date Smoking Tobacco: Every Day Cigarettes 1 15 Smokeless Tobacco: Never Alcohol Use Standard Drinks/Week Comments Yes 0 (1 standard drink = 0.6 oz pur [...] on filedocumented in this encounter Care Teams Dry Cell Sealer Relationship Specialty Start Date End Date Meseret Garcia MD [address] [place] [phone] PCP - General Family Medicine 05/09/20 10/13/23 Pcp, Unknown PCP - General 10/14/23 05/27/24 Mac Hallman PA [address] [place] [phone] PCP - General Physician Entry Level Electrical Engineer 05/28/24 documented as of this encounter Additional Source Comments The information contained in this document represents components of the legal health record. It is not the complete legal health record.[facility]
--- OUTSIDE RECORDS SUMMARY | 2024-10-28 11:15 | XMS_ITS | Encounter Summary ---
Author Organization [facility] Address [address] [facility] [address] [place] [address] Phone Care Team Providers Care Immersion Metal Cleaner Name Role Phone Meseret Garcia MD Primary Care Provider Pcp, Unknown Primary Care Provider Mac Coronel Primary Care Provid er Encounter Details Date Type Department Care Team (Late st Contact Info) Description 08/20/2021 Transcribe Orders [facility] Pulmonary, Allergy and Critical Care Medicine [address] [place] [address] Esthela Thomas, HIGHWAY SAFETY ENGINEER [address] [place] [address] Social History Tobacco Use Types Packs/Day Years [...] on filedocumented in this encounter Care Teams Immersion Metal Cleaner Relationship Specialty Start Date End Date Meseret Garcia MD [address] [place] [phone] PCP - General Family Medicine 05/09/20 10/13/23 Pcp, Unknown PCP - General 10/14/23 05/27/24 Mac Hallman PA [address] [place] [phone] PCP - General Physician Baster Hand 05/28/24 documented as of this encounter Additional Source Comments The information contained in this document represents components of the legal health record. It is not the complete legal health record.[facility]
--- OUTSIDE RECORDS SUMMARY | 2024-10-28 11:15 | XMS_ITS | Encounter Summary ---
Author Organization [facility] Address [address] [facility] [address] [place] [address] Phone Care Team Providers Care Plan Coordinator Name Role Phone Meseret Garcia MD Primary Care Provider Pcp, Unknown Primary Care Provider Mac Coronel Primary Care Provid er Reason for Referral * MRI/CAT Scan - Closed Specialty Diagnoses / Procedures Referred By Jaydon ann Referred To Contact Radiology Diagnoses Right shoulder pain, unspecified chronicity Procedures MRI Shoulder (Right) CHG MRI, JOINT UPPER EXTREM CHG MRI, JOINT UPPER EXTREM W/CONTRAST CHG MRI, JOINT UPPER EXTREM COMBO Esthela Thomas, COMMODITIES BROKER [address] [place] [address] Phone: tel: fax: Referral ID Status Reason Start Date Expiration Date Visits Re quested Visits Authorized [id number] Closed 08/14/2021 10/13/2021 1 1 Encounter Details Date Type Department Care Team (Latest Contact Info) Description 08/14/2021 Transcribe Orders Virtual Department [address] [place] [address] Esthela Thomas, COMMODITIES BROKER [address] [place] [address] Right shoulder pain, unspecified chronicity (Primary Dx) Social History Tobacco Use Types [...] as of this encounter Results * MRI SHOULDER WITHOUT CONTRAST (RIGHT) (08/28/2021 7:28 AM EDT) Anatomical Region Laterality Modality Shoulder Right Magnetic Resonan ce 08/28/2021 9:43 AM EDT Impressions 08/28/2021 9:51 AM EDT 1.Posterior labral tear. 2.Moderate AC joint osteoarthritis with reactive marrow edema signal changes. 3.Trace joint effusion and subcoracoid bursitis. 4.Os acromiale. Narrative 08/28/2021 9:51 AM EDT COMPARISON: None. TECHNIQUE: Exam performed on a 1.5 Catalina high-field MRI scanner. Axial T1 and proton density with fat suppression, oblique coronal proton density with fat suppression and T2 with fat suppression, oblique sagittal T1 and T2 with fat suppression sequences were obtained. MRI RIGHT SHOULDER FINDINGS: Acromion: Os acromiale. Mild bone marrow edema within the accessory ossicle. Type II acromion. No anterior or lateral downsloping. Rotator cuff muscle/tendon: No rotator cuff tear. No rotator cuff muscle edema or atrophy. Labrum/biceps tendon: Biceps tendon is intact. Diminutive posterior superior and inferior labrum with multifocal hyperintense signal changes. Bone marrow/joint: Moderate acromioclavicular joint space narrowing with bone marrow edema signal changes in the os acromiale and distal clavicle shaft. Glenohumeral joint space is preserved. No malalignment. There are small humeral head degenerative cysts. No destructive or suspicious bone lesions. Trace joint effusion. Trace subcoracoid bursal fluid. No subacromial/subdeltoid bursal fluid. No suprascapular or spinoglenoid notch mass. Procedure Note Blake Boland MD - 08/28/2021 COMPARISON: None. TECHNIQUE: Exam performed on a 1.5 Catalina high-field MRI scanner. Axial T1and proton density with fat suppression, oblique coronal proton densitywith fat suppression and T2 with fat suppression, oblique sagittal T1 andT2 with fat suppression sequences were obtained. MRI RIGHT SHOULDER FINDINGS: Acromion: Os acromiale. Mild bone marrow edema within the accessoryossicle. Type II acromion. No anterior or lateral downsloping. Rotator cuff muscle/tendon: No rotator cuff tear. No rotator cuff muscleedema or atrophy. Labrum/biceps tendon: Biceps tendon is intact. Diminutive posteriorsuperior and inferior labrum with multifocal hyperintense signalchanges. Bone marrow/joint: Moderate acromioclavicular joint space narrowing withbone marrow edema signal changes in the os acromiale and distal clavicleshaft. Glenohumeral joint space is preserved. No malalignment. There aresmall humeral head degenerative cysts. No destructive or suspicious bonelesions. Trace joint effusion. Trace subcoracoid bursal fluid. Nosubacromial/subdeltoid bursal fluid. No suprascapular or spinoglenoidnotch mass. IMPRESSION: 1.Posterior labral tear. 2.Moderate AC joint osteoarthritis with reactive marrow edema signalchanges. 3.Trace joint effusion and subcoracoid bursitis. 4.Os acromiale. Esthela Thomas COMMODITIES BROKER IM MR EXTREMITY Final Result documented in this encounter Visit Diagnoses Diagnosis Right shoulder pain, unspecified chronicity- Primary Right shoulder pain, unspecified chronicity documented in this encounter Care Teams Plan Coordinator Relationship Specialty Start Date End Date Meseret Garcia MD [address] [place] [phone] PCP - General Family Medicine 05/09/20 10/13/23 Pcp, Unknown PCP - General 10/14/23 05/27/24 Mac Hallman PA [facility] [place] [phone] PCP - General Physician Millinery Teacher 05/28/24 documented as of this encounter Additional Source Comments The information contained in this document represents components of the legal health record. It is not the complete legal health record.[facility]
--- OUTSIDE RECORDS SUMMARY | 2024-10-28 11:15 | XMS_ITS | Encounter Summary ---
Author Organization [facility] Address [address] [facility] [address] [place] [phone] Phone Care Team Providers Care Ornamental Iron Erector Name Role Phone Meseret Garcia MD Primary Care Provider Pcp, Unknown Primary Care Provider Mac Coronel Primary Care Provid er Encounter Details Date Type Department Care Team (Late st Contact Info) Description 08/14/2021 Procedure Pass [facility], [address] [place] [address] Social History Tobacco Use Types Packs/Day Years [...] on filedocumented in this encounter Care Teams Ornamental Iron Erector Relationship Specialty Start Date End Date Meseret Garcia MD [address] [place] [phone] PCP - General Family Medicine 05/09/20 10/13/23 Pcp, Unknown PCP - General 10/14/23 05/27/24 Mac Hallman PA [address] [place] [address] PCP - General Physician Sane Nurse 05/28/24 documented as of this encounter Additional Source Comments The information contained in this document represents components of the legal health record. It is not the complete legal health record.[facility]
--- NOTE | 2024-10-28 11:55 | ECG_ITS ---
Test Reason : CHECK QTC Blood Pressure : */* mmHG Vent. Rate : 86 BPM Atrial Rate : 86 BPM P-R Int : 160 ms QRS Dur : 86 ms QT Int : 364 ms P-R-T Axes : 57 40 9 degrees QTcB Int : 435 ms Normal sinus rhythm Normal ECG When compared with ECG of 14-Jul-2024 15:33, No significant change was found Referred By: Pratima Red Electronically Signed By: JANINA MENCHACA
--- NOTE | 2024-10-28 12:01 | PC.NURSE ---
admissions called POD requesting additional testing for admission: PT/INR, LIver Panel, UA, EKG. Orders placed by t/w
[2024-10-28 12:20] LABS: Appearance Urine Clear; Glucose Urine UA Negative (Negative); PH 7.0 (5.0-9.0); Specific Gravity - Urine 1.020 (1.005-1.025)
[2024-10-28 12:34] LABS: INTERNATIONAL NORM RATIO 1.0 (0.9-1.1); Prothrombin Time 11.3 SEC (10.9-12.4)
[2024-10-28 12:43] LABS: Alanine Aminotransferase 70 U/L (0-40); Albumin Level 5.0 g/dL (3.5-5.0); Alkaline Phosphatase 62 U/L (39-117); Aspartate Amino Transferase 47 U/L (5-37); Total Protein 7.2 g/dL (6.5-8.0)
--- NOTE | 2024-10-28 15:06 | MHC.CARE ---
Jarvis Olivares pt is accepted to [facility], accepting is Dr. Scott
[2024-10-28 15:27] VITALS: BP 119/62; PULSE 90; RESP 20; TEMP 36.6; O2SAT 95
--- NOTE | 2024-10-28 15:29 | PC.NURSE ---
Assumed care of this patient at 1500, patient resting quietly in bed at this time. Plan is for patient to be transferred to A.
[2024-10-28 16:07] VITALS: BP 119/62; PULSE 90; RESP 20; TEMP 36.6; O2SAT 95
== END 2024-10-28 15:45 ==
PROVIDERS: Physician Assistant; Emergency Provider Emergency Medicine; Referring Provider Emergency Medicine
DX: F31.9 Bipolar disorder, unspecified (principal); R94.31 Abnormal electrocardiogram [ECG] [EKG]; F43.10 Post-traumatic stress disorder, unspecified; Z79.899 Other long term (current) drug therapy; F17.210 Nicotine dependence, cigarettes, uncomplicated; Z51.81 Encounter for therapeutic drug level monitoring
CPT/HCPCS: 36415; 80053; 80076; 80143; 80179; 80307; 81003; 85025; 85610; 93005; 99285; S9485

== ENCOUNTER → 2024-10-28 11:55 | Outpatient (BNV) | payer OTHER, SELFPAY | PROVIDERS: Emergency Provider Emergency Medicine; Visit Provider Internal Medicine | DX: Z13.6 Encounter for screening for cardiovascular disorders (principal) | CPT/HCPCS: 93010 ==

== ENCOUNTER 2024-11-15 13:43 | Emergency (ER) | payer OTHER, SELFPAY ==
[2024-11-15 13:50] VITALS: BP 150/90; PULSE 90; O2SAT 97
[2024-11-15 13:57] VITALS: BP 136/75; PULSE 106; RESP 16; TEMP 36.4; O2SAT 97; BMI 35.2
--- NOTE | 2024-11-15 14:00 | ECG_ITS ---
Test Reason : CHECK QTC Blood Pressure : */* mmHG Vent. Rate : 80 BPM Atrial Rate : 80 BPM P-R Int : 158 ms QRS Dur : 92 ms QT Int : 374 ms P-R-T Axes : 55 52 28 degrees QTcB Int : 431 ms Normal sinus rhythm with sinus arrhythmia Normal ECG When compared with ECG of 28-Oct-2024 12:17, No significant change was found Referred By: Generic ED Physician Electronically Signed By: JANINA MENCHACA
--- NOTE | 2024-11-15 14:39 | PC.NURSE ---
Assumed care of this patient upon transfer to the pod after truck loader overhead crane. Patient walked over by Tony larios. Tony to complete belongings list. Patient acutely manic, speaking nonsensically. Cooperative at this time.
--- NOTE | 2024-11-15 15:03 | ED_ITS ---
HPI - Psych General Chief Complaint: Psychiatric Symptoms Stated Complaint: sect 12 making unwanted comments, pt calm Time Seen by Provider: 11/15/24 14:09 Source: patient and RN notes reviewed Mode of arrival: ambulatory Limitations: no limitations History of Present Illness ED Provider: Lucila Vitale PA-C HPI Narrative: This is a 38-year-old male who presents emergency department after being section by PD after calling [employer] offices and making sexually inappropriate comments. I attempted to inquire about patient's reason why he is here in the emergency room, he proceeds to tell me a story about how he does not trust people and is stating that people 0 him money. He is not making entire since, and refuses to answer any questions in regards to drug use, alcohol use, stating that it is ?none of my business . He then refuses to continue to have a conversation with me, stating that he would like to have another nurse, and no longer wants to speak with me. Related Data Home Medications ?Medication ?Instructions ?Recorded ?Confirmed No Known Home Meds 04/07/24 11/16/24 Allergies Allergy/AdvReac Type Severity Reaction Status Date / Time aripiprazole (From ABILIFY) Allergy Unknown suicidal Verified 11/15/24 13:58 thoughts Review of Systems 2 Review of Systems: Yes all other systems are reviewed and are negative Constitutional: Constitutional: Reports as per HPI [facility] Past Medical History Medical History Depression Social History Social History Alcohol intake: current Alcohol intake frequency: 0-2 drinks per day Alcohol type: beer Patient Tobacco Use Status: Current everyday Tobacco user Smoked in Last 30 Days: No Use of substances other than those prescribed or required for medical reasons: No Substance Use Type: Marijuana Advance Directives: No Advance Directives Information Provided: No Do you have a plan to hurt others: No Plan Physical Exam 2 Vital Signs: Vital Signs: Last Vital Signs Temp 97.2 F 11/16/24 06:07 Pulse 87 11/16/24 06:07 Resp 16 11/16/24 06:07 BP 118/66 11/16/24 06:07 Pulse Ox 99 11/16/24 06:07 O2 Del Method Room Air 11/16/24 06:07 BMI result Body Mass Index 35.2 Const: General: cooperative, comfortable and no acute distress O rientation/consciousness: patient oriented x3 Limitations: no limitations HEENT: Head: Yes normal to inspection, Yes normocephalic and Yes atraumatic Ears: hearing grossly normal bilaterally General nose exam: Normal external nose present Face and sinus: Yes normal facial exam Mouth: Normal oral and palatal mucosa present, oropharynx normal and moist mucous membranes Throat: Yes posterior oropharynx normal Eyes: General: appearance normal, both eyes and all related structures E yelids: Yes eyelids normal Conjunctivae: conjunctivae normal Sclerae: s clerae normal Pupils: Equal, round and reactive pupils present EOM: EOMs intact bilaterally Neck: Neck: Yes normal visual inspection, Yes full ROM and Yes no lymphadenopathy Lymphatic: no lymphadenopathy noted Chest: Chest palpation & inspection: normal inspection of the chest Resp: Effort & Inspection: normal respiratory effort and able to speak in complete sentences Auscultation: clear to auscultation bilaterally, no crackles, no rales, no rhonchi and no wheezes Cardio: Rate: regular rate Rhythm: regular rhythm Heart sounds: S1 normal heart sound present and S2 normal heart sound present GI: Inspection: Yes normal to inspection Skin: General skin exam: no rashes or lesions noted Trauma: no lacerations or abrasions Wounds: no wounds Neuro: General: patient oriented x3 and moves all extremities Cranial nerves: Yes Equal, round and reactive pupils present Extrem: General: Yes normal to inspection Right upper extremity: normal to inspection Left upper extremity: normal to inspection Right lower extremity: normal to inspection Left lower extremity: normal to inspection Psych: Appearance: well kempt Affect: Hostile affect present and Indifferent affect present Attitude: Guarded attititude/behavior present and Avoids eye contact (attititude/behavior) Thought process: Loose association thought process present, Perseverating thought process present and Racing thoughts present Insight: Limited insight present (Psych) Judgement: L imited judgement present (Psych) Course Course Course Narrative: Time: 07:02 Date: 11/16/24 Provider: Coco Chen, DO Patient in physician observation for psychiatric evaluation.? No acute events reported overnight. No current complaints. VS stable.? Patient is in bed search status. Will continue to monitor. Reevaluation(s) Reevaluation #1: Time: 14:47 Date: 11/16/24 Provider: Coco Chen DO Physician observation ended at 247pm. Patient to be admitted as inpatient to psychiatry Medications Administered Generic Name Dose Route Start Last Admin Trade Name Freq PRN Reason Stop Dose Admin Nicotine Polacrilex 2 mg 11/15/24 19:04 11/16/24 13:51 Nicotine Polacrilex 2 Mg Gum BUCCAL 2 mg Q2H PRN Administration Nicotine Cravings Discontinued Medications Generic Name Dose Route Start Last Admin Trade Name Freq PRN Reason Stop Dose Admin Olanzapine 10 mg 11/15/24 20:35 11/15/24 22:08 Olanzapine Odt 10 Mg Tab.Rapdis TRANSLINGU 11/15/24 20:36 Not Given ONCE ONE Medical Decision Making Medical Decision Making MDM Narrative: This is a 38-year-old male, with a past medical history of PTSD, who presents emergency department after being section by PD. On arrival, patient tachycardic at 1:06 a.m.. He has no physical complaints, no chest pain or shortness for breath. I attempted to get a full H&P from patient however patient refused answering any of my questions stating that it was ?not on my business?. Patient started to speak about a situation in regards to money, and police officers, and 's, it appears that patient is not making any appropriate comments. Plan: Labs, care team, further crisis eval needed. 5:21 PM 11/15/2024 (Lucila Vitale PA-C): Labs returned, he has no leukocytosis, stable H&H, chemistry revealing no significant electrolyte derangement, U tox negative. Patient was seen by the crisis team, recommending inpatient level of care for mood stabilization and containment. Patient placed on a section 12 for safety as bed search is completed. Physician observation initiated pending inpatient bed search. Differential Diagnosis Differential Diagnoses: The differential diagnosis associated with the presentation includes Acute ron, PTSD, depression, anxiety, polysubstance abuse Lab Data [facility] Lab Attestation statement: I reviewed the patient's lab results. See MDM and course 11/15/24 16:24 11/15/24 16:24 Labs: Lab Results 11/15/24 11/15/24 11/15/24 Range/Units 16:24 16:26 17:14 WBC 9.6 (4.8-10.8) X10*3/uL RBC 4.70 (4.60-5.80) X10*6/uL Hgb 13.9 L (14.0-18.0) g/dl Hct 39.5 L (42.0-52.0) % MCV 84.0 (80.0-98.0) fL MCH 29.6 (27.0-33.0) pg MCHC 35.2 (31.0-36.0) g/dl RDW 12.1 (11.0-16.0) % Plt Count 257 (160-400) X10*3/uL MPV 8.7 L (9.4-12.4) fL Immature Gran % (Auto) 0.2 (0.0-0.4) % Neut % (Auto) 62.9 (45-73) % Lymph % (Auto) 26.9 (20-40) % [place] % (Auto) 5.8 (2-11) % Eos % (Auto) 3.5 (0-4) % Baso % (Auto) 0.7 (0-2) % Lymph # (Auto) 2.6 (1.2-4.9) X10*3/uL [place] # (Auto) 0.6 (0.1-1.2) X10*3/uL Eos # (Auto) 0.3 (0.0-0.4) X10*3/uL Baso # (Auto) 0.1 (0.0-0.2) X10*3/uL Abs Immat Gran (auto) 0.02 (0.00-0.03) X10*3/uL Absolute Neuts (auto) 6.0 (2.0-8.3) x10*3/uL Absolute Nucleated RBC 0.000 (0.0-0.012) X10*3/uL Nucleated RBC % (auto) 0.0 (0.0-0.2) /100WBC PT 10.7 L (10.9-12.4) SEC INR 0.9 (0.9-1.1) Sodium 141 (135-145) mmol/L Potassium 4.0 (3.3-5.1) mmol/L Chloride 109 H (96-108) mmol/L Carbon Dioxide 23 (22-29) mmol/L Anion Gap 13 (12-20) BUN 14 (9-16) mg/dL Creatinine 1.05 (0.5-1.4) mg/dL Estim Creat Clear Calc 109.6 Estimated GFR > 60 Random Glucose 110 (60-115) mg/dL Calcium 9.2 (8.4-10.2) mg/dL Total Bilirubin 0.3 (0.0-1.0) mg/dL AST 48 H (5-37) U/L ALT 58 H (0-40) U/L Alkaline Phosphatase 64 (39-117) U/L Total Protein 6.9 (6.5-8.0) g/dL Albumin 4.8 (3.5-5.0) g/dL Urine Color Yellow Urine Appearance Clear Urine pH 6.5 (5.0-9.0) Ur Specific [place] 1.020 (1.005-1.025) Urine Protein Negative (Neg-Trace) mg/dL Urine Glucose (UA) Negative (Negative) mg/dL Urine Ketones Trace (Negative) mg/dL Urine Blood Negative (Negative) Urine Nitrite Negative (Negative) Ur Leukocyte Esterase Negative (Negative) Salicylates < 5.0 L (15-30) mg/dL Urine Opiates Screen Not Detected (Not Detect) Ur Buprenorphine Scrn Not Detected (Not Detect) ng/mL Ur Oxycodone Screen Not Detected (Not Detect) ng/mL Urine Methadone Screen Not Detected (Not Detect) ng/mL Urine Fentanyl Screen Not Detected (Not Detect) Ur Barbiturates Screen Not Detected (Not Detect) Ur Phencyclidine Scrn Not Detected (Not Detect) Ur Amphetamines Screen Not Detected (Not Detect) U Benzodiazepines Scrn Not Detected (Not Detect) Urine Cocaine Screen Not Detected (Not Detect) U Marijuana (THC) Screen Not Detected (Not Detect) Ethyl Alcohol < 10 mg/dL COVID-19 (LINA) Negative (Negative) COVID-19 Clin Com See Note Discharge Plan Discharge Clinical Impression: Acute psychosis Patient Disposition: Xfer [facility]iatric [facility] Prescriptions: No Action No Known Home Meds Interventions: [place]-Suicide Risk Severity Scale Last Done: 11/15/24 14:41 Print Language: Serbian
--- NOTE | 2024-11-15 15:52 | MHC.EDTECH ---
this pct attempted to do EKG , patient refused and stated i don't want to be touched anymore and i dont want to do an ekg , i want more food .
[2024-11-15 16:29] LABS: MANUAL DIFF FLAG NO
[2024-11-15 16:30] LABS: Hematocrit 39.5 % (42.0-52.0); Hemoglobin 13.9 g/dl (14.0-18.0); Imm Gran Abs Auto 0.02 X10*3/uL (0.00-0.03); Imm Gran Pct Auto 0.2 % (0.0-0.4); Lymphocytes Absolute Auto 2.6 X10*3/uL (1.2-4.9); Mean Corpuscular HGB Conc 35.2 g/dl (31.0-36.0); Mean Corpuscular Hemoglobin 29.6 pg (27.0-33.0); Mean Corpuscular Volume 84.0 fL (80.0-98.0); NRBC Abs Auto 0.000 X10*3/uL (0.0-0.012); NRBC Pct Auto 0.0 /100WBC (0.0-0.2); Platelet Count 257 X10*3/uL (160-400); Red Blood Count 4.70 X10*6/uL (4.60-5.80); White Blood Count 9.6 X10*3/uL (4.8-10.8)
[2024-11-15 16:32] LABS: Appearance Urine Clear; Glucose Urine UA Negative (Negative); PH 6.5 (5.0-9.0); Specific Gravity - Urine 1.020 (1.005-1.025)
[2024-11-15 16:47] LABS: Alanine Aminotransferase 58 U/L (0-40); Albumin Level 4.8 g/dL (3.5-5.0); Alkaline Phosphatase 64 U/L (39-117); Anion Gap 13 (12-20); Aspartate Amino Transferase 48 U/L (5-37); Blood Urea Nitrogen 14 mg/dL (9-16); Calcium 9.2 mg/dL (8.4-10.2); Carbon Dioxide 23 mmol/L (22-29); Chloride 109 mmol/L (96-108); Creatinine Clr Calc Pharmacy 109.6; Estimated Glomerular Filt Rate > 60; Potassium 4.0 mmol/L (3.3-5.1); Salicylate < 5.0 mg/dL (15-30); Sodium 141 mmol/L (135-145); Total Protein 6.9 g/dL (6.5-8.0)
--- NOTE | 2024-11-15 16:52 | PC.NURSE ---
BH admissions requesting PT/INR & Covid swab, orders placed.
[2024-11-15 16:57] LABS: Cannabinoid Screen Urine Not Detected (Not Detect)
[2024-11-15 17:06] VITALS: BP 128/71; PULSE 88; RESP 16; TEMP 36.6; O2SAT 99
[2024-11-15 17:31] LABS: COVID-19 Test Negative (Negative); IDNOW Serial# 58CA691E
[2024-11-15 17:40] LABS: INTERNATIONAL NORM RATIO 0.9 (0.9-1.1); Prothrombin Time 10.7 SEC (10.9-12.4)
--- NOTE | 2024-11-15 17:42 | PC.NURSE ---
Pt states he does not take any medications at home. No meds noted in external med rec.
--- OUTSIDE RECORDS SUMMARY | 2024-11-15 20:15 | XMS_ITS | Clinical Summary ---
Author Organization [facility] Address [address] [facility] [address] [place] [address] Phone Care Team Providers Care Enterprise Records Analyst Name Role Phone Mac Hallman Primary Care [...] 05/29/2024 Are you denied basic needs [facility] as food, clothing, or medical care? [...] HEPATITIS C SCREENING 2004 HIV ONE-TIME SCREENING (18-65 YEARS) 2004 PNEUMOCOCCAL VACCINES (0-49 years) (2 of 2 - PCV) 01/02/2018 01/02/2017, 05/29/2015 INFLUENZA VACCINE (#1) 2024 , 11/23/2018, 11/01/2018, Additional history exists COVID-19 VACCINE ( season) 2024 03/17/2021, 08/31/2020, 06/13/2020 Adult Td,Tdap Booster 05/28/2025 [...] this topic Medical Devices Implanted Type Area Content Publisher Device Identifier Shelf Expiration Date Model / Serial / Lot Mesh Mesh Umb[employer] Insurance MEDICARE PART A & B MEDICARE PART A & B MEDICARE PART A & B [facility] MEDICARE PART A & B Member Subscriber Plan / Payer (Ef fective 2013-Present) Name:Raphael Taylor Member ID:[id number] Relation to Subscriber:Self Name:Raphael Taylor Subscriber ID:[id number] Payer ID:[id number] Group ID:Not on file Type:Medicare Address: [employer] [address] [place] [phone] [facility] MEDICARE PART A & B [facility] MEDICARE PART A & B [facility] MEDICARE PART A & B [facility] MEDICARE PART A & B [facility] MEDICARE PART A & B [facility] Advance Directives For more information, please contact: [phone] (9AM - 5PM [employer], Friday-Friday) * Full Code (Latest Code Status on File) Date Activated Date Inactivated Comments 12/25/2021 6:01 AM Question Answer Comments Code Status Confirmed With: Patient Care Teams Enterprise Records Analyst Relationship Specialty Start Date End Date Mac Hallman PA [address] [place] [phone] PCP - General Physician Patient Portal Concierge 05/28/24 Additional Source Comments The information contained in this document represents components of the legal health record. It is not the complete legal health record.[facility]
--- OUTSIDE RECORDS SUMMARY | 2024-11-15 20:15 | XMS_ITS | Encounter Summary ---
Author Organization [facility] Address [address] [facility] [address] [place] [address] Phone Care Team Providers Care Dry Paste Supervisor Name Role Phone Unknown, Unknown Primary Care [...] Expiration Date Visits Re quested Visits Authorized [id number] Closed 05/04/2020 07/03/2020 1 1 Encounter Details Date Type Department Care Team (Latest Contact Info) Description 05/04/2020 Transcribe Orders Virtual Department [address] [place] [address] Cirilo Nicholas PA [address] [place] [address] [email or web address] Other specified injuries of right ankle, [...] encounter documented in this encounter Care Teams Dry Paste Supervisor Relationship Specialty Start Date End Date Unknown, Unknown, PCP - General 05/04/20 05/08/20 Meseret Garcia MD [address] [place] [address] PCP - General Family Medicine 05/09/20 10/13/23 Pcp, Unknown PCP - General 10/14/23 05/27/24 Mac Hallman PA [address] [place] [phone] PCP - General Physician Business Improvement Manager 05/28/24 documented as of this encounter Additional Source Comments The information contained in this document represents components of the legal health record. It is not the complete legal health record.[facility]
--- OUTSIDE RECORDS SUMMARY | 2024-11-15 20:15 | XMS_ITS | Encounter Summary ---
Author Organization [facility] Address [address] [facility] [address] [place] [address] Phone Care Team Providers Care Air Cargo Specialist Supervisor Name Role Phone Meseret Garcia MD Primary Care Provider Pcp, Unknown Primary Care Provider Mac Coronel Primary Care Provid er Encounter Details Date Type Department Care Team (Late st Contact Info) Description 02/05/2022 Transcribe Orders [facility] [address] [place] [address] José Ariza MD [address] [place] [address] [phone] [email or web address] Social History Tobacco Use Types Packs/Day Years [...] on filedocumented in this encounter Care Teams Air Cargo Specialist Supervisor Relationship Specialty Start Date End Date Meseret Garcia MD [address] [place] [address] PCP - General Family Medicine 05/09/20 10/13/23 Pcp, Unknown PCP - General 10/14/23 05/27/24 Mac Hallman PA [address] [place] [phone] PCP - General Physician Real Estate Agent 05/28/24 documented as of this encounter Additional Source Comments The information contained in this document represents components of the legal health record. It is not the complete legal health record.[facility]
--- OUTSIDE RECORDS SUMMARY | 2024-11-15 20:15 | XMS_ITS | Encounter Summary ---
Author Organization [facility] Address [address] [facility] [address] [place] [address] Phone Care Team Providers Care Community Cultural Development Officer Name Role Phone Meseret Garcia MD Primary Care Provider Pcp, Unknown Primary Care Provider Mac Coronel Primary Care Provid er Encounter Details Date Type Department Care Team (Late st Contact Info) Description 08/20/2021 Transcribe Orders [facility] Pulmonary, Allergy and Critical Care Medicine [address] [place] [address] Esthela Thomas, BUNDLE CUTTER [address] [place] [address] Social History Tobacco Use Types Packs/Day Years [...] on filedocumented in this encounter Care Teams Community Cultural Development Officer Relationship Specialty Start Date End Date Meseret Garcia MD [address] [place] [address] PCP - General Family Medicine 05/09/20 10/13/23 Pcp, Unknown PCP - General 10/14/23 05/27/24 Mac Hallman PA [address] [place] [address] PCP - General Physician Property And Casualty Insurance Agent 05/28/24 documented as of this encounter Additional Source Comments The information contained in this document represents components of the legal health record. It is not the complete legal health record.[facility]
--- OUTSIDE RECORDS SUMMARY | 2024-11-15 20:15 | XMS_ITS | Encounter Summary ---
Author Organization [facility] Address [address] [place] [address] [place] [address] Phone Care Team Providers Care Wet Finisher Name Role Phone Meseret Garcia MD Primary Care Provider Pcp, Unknown Primary Care Provider Mac Coronel Primary Care Provid er Encounter Details Date Type Department Care Team (Late st Contact Info) Description 09/29/2020 Procedure [place] Admitting Dept - Virtual Department [address] [place] [address] Social History Tobacco Use Types Packs/Day Years [...] on filedocumented in this encounter Care Teams Wet Finisher Relationship Specialty Start Date End Date Meseret Garcia MD [address] [place] [phone] PCP - General Family Medicine 05/09/20 10/13/23 Pcp, Unknown PCP - General 10/14/23 05/27/24 Mac Hallman PA [address] [place] [phone] PCP - General Physician Shove Up 05/28/24 documented as of this encounter Additional Source Comments The information contained in this document represents components of the legal health record. It is not the complete legal health record.[facility]
--- OUTSIDE RECORDS SUMMARY | 2024-11-15 20:15 | XMS_ITS | Encounter Summary ---
Author Organization [facility] Address [address] [facility] [place] [address] Phone Care Team Providers Care Cash Surrender Calculator Name Role Phone Meseret Garcia MD Primary Care Provider Pcp, Unknown Primary Care Provider Mac Coronel Primary Care Provid er Encounter Details Date Type Department Care Team (Late st Contact Info) Description 12/25/2021 Procedure Pass [facility] PERIOPERATIVE DEPT [address] [place] [phone] Social History Tobacco Use Types Packs/Day Years [...] 3:00 PM EDT Tasneem Landrum, ZANE * [place] Suicide Severity Rating Scale (Screener/Recent Self-Report) Question [...] on filedocumented in this encounter Care Teams Cash Surrender Calculator Relationship Specialty Start Date End Date Meseret Garcia MD [address] [place] [address] PCP - General Family Medicine 05/09/20 10/13/23 Pcp, Unknown PCP - General 10/14/23 05/27/24 Mac Halmlan PA [address] [place] [phone] PCP - General Physician Production Engine Repairer 05/28/24 documented as of this encounter Additional Source Comments The information contained in this document represents components of the legal health record. It is not the complete legal health record.[facility]
--- OUTSIDE RECORDS SUMMARY | 2024-11-15 20:15 | XMS_ITS | Encounter Summary ---
Author Organization [facility] Address [address] [facility] [address] [place] [address] Phone Care Team Providers Care Paint Tester Name Role Phone Meseret Garcia MD Primary Care Provider Pcp, Unknown Primary Care Provider Mac Coronel Primary Care Provid er Encounter Details Date Type Department Care Team (Late st Contact Info) Description 08/14/2021 Procedure Pass [facility], [address] [place] [address] Social History Tobacco Use Types Packs/Day Years [...] on filedocumented in this encounter Care Teams Paint Tester Relationship Specialty Start Date End Date Meseret Garcia MD [address] [place] [address] PCP - General Family Medicine 05/09/20 10/13/23 Pcp, Unknown PCP - General 10/14/23 05/27/24 Mac Hallman PA [address] [place] [address] PCP - General Physician Personal Injury Paralegal 05/28/24 documented as of this encounter Additional Source Comments The information contained in this document represents components of the legal health record. It is not the complete legal health record.[facility]
--- OUTSIDE RECORDS SUMMARY | 2024-11-15 20:15 | XMS_ITS | Encounter Summary ---
Author Organization [facility] Address [address] [facility] [address] [place] [address] Phone Care Team Providers Care Skip Pitman Name Role Phone Meseret Garcia MD Primary [...] MRI, JOINT UPPER EXTREM COMBO Esthela Thomas, CALENDER SUPERVISOR [address] [place] [address] Phone: tel: fax: Referral ID Status Reason Start Date Expiration Date Visits Re quested Visits Authorized [id number] Closed 08/14/2021 10/13/2021 1 1 Encounter Details Date Type Department Care Team (Latest Contact Info) Description 08/14/2021 Transcribe Orders Virtual Department [address] [place] [address] Esthela Thomas, CALENDER SUPERVISOR [address] [place] [address] Right shoulder pain, unspecified chronicity (Primary Dx) [...] and subcoracoid bursitis. 4.Os acromiale. Esthela Thomas CALENDER SUPERVISOR IM MR EXTREMITY Final Result documented in this encounter Visit Diagnoses Diagnosis Right shoulder pain, unspecified chronicity- Primary Right shoulder pain, unspecified chronicity documented in this encounter Care Teams Skip Pitman Relationship Specialty Start Date End Date Meseret Garcia MD [address] [place] [address] PCP - General Family Medicine 05/09/20 10/13/23 Pcp, Unknown PCP - General 10/14/23 05/27/24 Mac Hallman [place] [facility] [place] [phone] PCP - General Physician Hand Stone Polisher 05/28/24 documented as of this encounter Additional Source Comments The information contained in this document represents components of the legal health record. It is not the complete legal health record.[facility]
--- OUTSIDE RECORDS SUMMARY | 2024-11-15 20:15 | XMS_ITS | Encounter Summary ---
Author Organization [facility] Address [address] [place] [address] [place] [address] Phone Care Team Providers Care Breaker Up Machine Operator Name Role Phone Unknown, Unknown Primary Care Provider Meseret Horta MD Primary Care Provider Pcp, Unknown Primary Care Provider Mac Coronel Primary Care Provid er Encounter Details Date Type Department Care Team (Late st Contact Info) Description 05/04/2020 Procedure Pass [facility], [address] [place] [address] Social History Tobacco Use Types Packs/Day Years [...] on filedocumented in this encounter Care Teams Breaker Up Machine Operator Relationship Specialty Start Date End Date Unknown, Unknown, PCP - General 05/04/20 05/08/20 Meseret Garcia MD [address] [place] [address] PCP - General Family Medicine 05/09/20 10/13/23 Pcp, Unknown PCP - General 10/14/23 05/27/24 Mac Hallman PA [address] [place] [address] PCP - General Physician Security Researcher 05/28/24 documented as of this encounter Additional Source Comments The information contained in this document represents components of the legal health record. It is not the complete legal health record.[facility]
--- OUTSIDE RECORDS SUMMARY | 2024-11-15 20:15 | XMS_ITS | Encounter Summary ---
Author Organization [facility] Address [address] [facility] [address] [place] [address] Phone Care Team Providers Care Maintenance Fitter Name Role Phone Meseret Garcia MD Primary Care Provider Pcp, Unknown Primary Care Provider Mac Coronel Primary Care Provid er Encounter Details Date Type Department Care Team (Late st Contact Info) Description 08/04/2020 Procedure Pass [facility], [address] [place] [address] Social History Tobacco Use Types Packs/Day Years [...] on filedocumented in this encounter Care Teams Maintenance Fitter Relationship Specialty Start Date End Date Meseret Garcia MD [address] [place] [address] PCP - General Family Medicine 05/09/20 10/13/23 Pcp, Unknown PCP - General 10/14/23 05/27/24 Mac Hallman PA [address] [place] [address] PCP - General Physician Brand Designer 05/28/24 documented as of this encounter Additional Source Comments The information contained in this document represents components of the legal health record. It is not the complete legal health record.[facility]
[2024-11-15 20:58] VITALS: BP 114/53; PULSE 75; RESP 20; TEMP 36.9; O2SAT 97
--- NOTE | 2024-11-15 21:03 | PC.NURSE ---
Patient continues to be acutre manic, unable to stay in one place for extended periods of time, constantly asking staff nonsensical questions. Offered PRN Zyprexa, patient adamantly refused.
--- NOTE | 2024-11-16 01:18 | PC.NURSE ---
appears calm, ambulated steadily to bathroom, voided urine.
[2024-11-16 06:07] VITALS: BP 118/66; PULSE 87; RESP 16; TEMP 36.2; O2SAT 99
--- NOTE | 2024-11-16 07:08 | PC.NURSE ---
Assumed care, report received. Pt is wandering the halls, he continues to have nonsensical conversations. He is currently calm and cooperative, eating breakfast.
--- NOTE | 2024-11-16 13:29 | PHA.MEDREC ---
Addendum entered by Gualberto Iverson PharmD 11/16/24 13:44: reviewed Original Note: Pharmacy Consult ? Medication Reconciliation Pharmacy has reviewed the medication reconciliation done by nursing.
--- NOTE | 2024-11-16 14:42 | MHC.CARE ---
Pt accepted to [facility] by [facility]. The accepting provider is Dr. Almonte and they will be sending an ambulance by 3pm. [facility] Pod RN & CARE team were notified.
[2024-11-16 14:59] VITALS: BP 118/66; PULSE 87; RESP 16; TEMP 36.2; O2SAT 99
== END 2024-11-16 15:00 ==
PROVIDERS: Physician Assistant Medical; Emergency Provider Emergency Medicine
DX: F23 Brief psychotic disorder (principal); F43.10 Post-traumatic stress disorder, unspecified; R00.0 Tachycardia, unspecified
CPT/HCPCS: 36415; 80053; 80179; 80307; 81003; 85025; 85610; 87635; 93005; 99284; 99285; S9485

== ENCOUNTER → 2024-11-15 14:00 | Outpatient (BNV) | payer OTHER, SELFPAY | PROVIDERS: Emergency Provider Emergency Medicine; Visit Provider Internal Medicine | DX: Z13.6 Encounter for screening for cardiovascular disorders (principal) | CPT/HCPCS: 93010 ==